=== PATIENT | male | born 1985 ===

== ENCOUNTER 2017-04-17 13:45 | Emergency (ER) | payer MEDICARE ==
[2017-04-17 14:20] VITALS: BP 106/64
--- NOTE | 2017-04-17 14:51 | Emergency Department Report ---
HPI - General Chief Complaint: Medical Clearance Time Seen by Provider: 04/17/17 14:33 - HPI HPI: 32-year-old male presents with a requesting refill for Klonopin 1 mg 3 times a day. Patient states that he was supposed to have his appointment with psychologist earlier today which will be scheduled until next Saturday. Patient is requesting a 60 refill. Patient is currently seeing Dr. Jacques for anxiety. Denies suicidal or homicidal ideations. Denies hallucinations or delusions. Patient reports that his pulse rate is usually elevated when he feels anxious and he is anxious at this moment. ED Past Medical Hx - Past Medical History Previous Medical History?: Yes Hx Psychiatric Treatment: Yes (anxiety) - Surgical History Past Surgical History?: Yes Hx Cholecystectomy: Yes Additional Surgical History: gallbladder removed - Social History Smoking Status: Current Every Day Smoker Substance Use Type: None - Medications Home Medications: Home Medications Medication Instructions Recorded Confirmed Last Taken Type clonazePAM [KlonoPIN] 1 mg PO TID #15 tablet 08/07/14 05/13/15 Unknown Rx ED Review of Systems ROS: Stated complaint: ANXIETY ATTACKS Other details as noted in HPI Constitutional: denies: chills, fever, malaise Eyes: denies: eye pain ENT: denies: ear pain, throat pain, congestion Respiratory: denies: cough, shortness of breath, wheezing Cardiovascular: denies: chest pain, palpitations Endocrine: no symptoms reported Gastrointestinal: denies: abdominal pain, nausea, vomiting Skin: denies: rash Neurological: denies: headache, weakness Psychiatric: anxiety Physical Exam - Physical Exam Vital Signs: Vital Signs 04/17/17 14:11 Temperature 98.4 F Pulse Rate 119 H Respiratory 18 Rate Blood Pressure 106/64 O2 Sat by Pulse 96 Oximetry Physical Exam: GENERAL: The patient is well-developed and well-nourished. Patient is in NAD. HEAD: Normocephalic. Atraumatic. NECK: Supple, nontender, without lymphadenopathy. No meningitic signs are noted. CHEST/LUNGS: Clear to auscultation throughout. HEART/CARDIOVASCULAR: Tachycardic. Regular rhythm. No murmurs, rubs or gallops. ABDOMEN: Abdomen is soft, nontender. Bowel sounds normoactive. No guarding or rebound tenderness. EXTREMITIES: No cyanosis, clubbing or edema. Peripheral pulses intact. Capillary refill less than 2 seconds. NEURO: Alert and oriented x 3. Normal gait. ED Course Vital Signs 04/17/17 14:11 Temperature 98.4 F Pulse Rate 119 H Respiratory 18 Rate Blood Pressure 106/64 O2 Sat by Pulse 96 Oximetry ED Medical Decision Making - Lab Data Vital Signs 04/17/17 14:11 Temperature 98.4 F Pulse Rate 119 H Respiratory 18 Rate Blood Pressure 106/64 O2 Sat by Pulse 96 Oximetry - Medical Decision Making 32-year-old male presents today requesting a refill for Klonopin. Explained to patient that according to the prescription drug monitoring program his last PRESCRIPTION was on March 26 for 1 month supply of Klonopin 1 mg, and therefore I am unable to prescribe him any medication. At that point patient decided to leave the ER without further treatment or evaluation. Critical care attestation.: If time is entered above; I have spent that time in minutes in the direct care of this critically ill patient, excluding procedure time. ED Disposition Clinical Impression: Anxiety Disposition: Z-07 ELOPED Is pt being admited?: No Does the pt Need Aspirin: No Condition: Stable Referrals: PRIMARY CARE, [Primary Care Provider] - 3-5 Days
== END 2017-04-17 14:50 | disposition left against medical advice (07) ==
LOC: ED 13:45
DX: F41.9 Anxiety disorder, unspecified (principal); F17.200 Nicotine dependence, unspecified, uncomplicated; Z88.8 Allergy status to other drugs, medicaments and biological substances
CPT/HCPCS: 99281

== ENCOUNTER 2020-03-03 08:05 | Inpatient (IN) | payer MEDICARE ==
[2020-03-03 10:03] LABS: BUN/Creatinine Ratio 20; Blood Urea Nitrogen 24 mg/dL (9-20); Calcium 9.5 mg/dL (8.4-10.2); Hemolysis Index 3
--- NOTE | 2020-03-03 10:16 | Emergency Department Report ---
HPI - General Chief Complaint: Weakness Time Seen by Provider: 03/03/20 10:00 - HPI HPI: This is a 35-year-old male who presents to the emergency department via EMS after a passerby found the patient laying on the ground outside and called 911. Patient says that he was walking from one friend's house to another earlier this morning when he felt off balance and held onto a fence. The patient says that he held onto this fence for about 4 hours and now is "exhausted." He complains of some pain to the right upper arm and right thigh but no obvious trauma. He denies any headache, vision change, fever, slurred speech but does complain of feeling dehydrated. He has a past medical history of anxiety attacks for which he takes Klonopin. He denies any alcohol or illicit drug abuse. ED Past Medical Hx - Past Medical History Previous Medical History?: Yes Hx Psychiatric Treatment: Yes (anxiety) - Surgical History Past Surgical History?: Yes Hx Cholecystectomy: Yes Additional Surgical History: gallbladder removed - Social History Smoking Status: Never Smoker Substance Use Type: None - Medications Home Medications: Home Medications Medication Instructions Recorded Confirmed Last Taken Type clonazePAM [KlonoPIN] 1 mg PO TID #15 tablet 08/07/14 05/13/15 Unknown Rx ED Review of Systems ROS: Stated complaint: POSS ETOH Other details as noted in HPI Comment: All other systems reviewed and negative Constitutional: weakness. denies: chills, fever Eyes: denies: eye pain, vision change ENT: denies: ear pain, throat pain Respiratory: denies: cough, shortness of breath Cardiovascular: denies: chest pain, palpitations Gastrointestinal: denies: abdominal pain, vomiting Genitourinary: denies: dysuria, discharge Musculoskeletal: arthralgia, myalgia. denies: back pain Skin: denies: rash, lesions Neurological: weakness. denies: headache, numbness, paresthesias Physical Exam - Physical Exam Vital Signs: Vital Signs 03/03/20 08:27 Temperature 97.5 F L Pulse Rate 100 H Respiratory 16 Rate Blood Pressure 114/68 O2 Sat by Pulse 93 Oximetry Physical Exam: GENERAL: The patient is well-developed well-nourished. HENT: Normocephalic. Atraumatic. Patient has dry mucous membranes. EYES: Extraocular motions are intact. No nystagmus. NECK: Supple. Trachea is midline. CHEST/LUNGS: Clear to auscultation. There is no respiratory distress noted. HEART/CARDIOVASCULAR: Regular. There is no tachycardia. ABDOMEN: Abdomen is soft, nontender. Patient has normal bowel sounds. There is no abdominal distention. SKIN: Skin is warm and dry. NEURO: The patient is awake, alert, and oriented. The patient is cooperative. The patient has no focal neurologic deficits. Normal speech. Cranial nerves II through XII grossly intact. Patient speaks very slowly and very quietly. MUSCULOSKELETAL: There is tenderness to palpation along the right upper arm and right thigh without any obvious deformities. There is no limitation range of motion. ED Course Vital Signs 03/03/20 08:27 Temperature 97.5 F L Pulse Rate 100 H Respiratory 16 Rate Blood Pressure 114/68 O2 Sat by Pulse 93 Oximetry ED Medical Decision Making - Lab Data Result diagrams: 03/03/20 09:34 03/03/20 09:34 - EKG Data -: EKG Interpreted by Me EKG shows normal: sinus rhythm, axis, intervals, QRS complexes, ST-T waves Rate: normal - EKG Data When compared to previous EKG there are: previous EKG unavailable Interpretation: normal EKG - Radiology Data Radiology results: report reviewed, image reviewed interpreted by me: X-ray of the right femur and humerus does not show any fracture, dislocation, signs of osteomyelitis, or any other acute process. CT head/brain wo con INDICATION: Weakness. TECHNIQUE: Routine CT head without contrast. All CT scans at this location are performed using CT dose reduction for ALARA by means of automated exposure control. COMPARISON: None. FINDINGS: BRAIN / INTRACRANIAL CONTENTS: No acute hemorrhage, mass effect, midline shift, or hydrocephalus. No appreciable acute large territorial or lacunar infarct. No chronic infarct or focal atrophy. Normal brain volume and ventricular/sulcal size for age. ORBITS: No significant abnormality of visualized orbits. SINUSES / MASTOIDS: No significant abnormality of visualized sinuses and mastoid air cells. ADDITIONAL FINDINGS: None. IMPRESSION: 1. No acute intracranial abnormality. - Medical Decision Making This patient presented to the emergency department after he was found down on the ground, although awake and oriented, while holding onto or next to a fence. The patient calls that he felt lightheaded and weak and was clinging to a fence. On examination the patient does not have any focal, motor or sensory deficits and his cranial nerves are intact. The patient speaks very softly and slowly and does appear dehydrated. An IV was placed and he was given some IV fluid resuscitation. EKG does not have any morphology consistent with ST elevation NH. CT of the head without contrast does not show any bleed, shift, mass, ischemia, or any other acute process. The patient has been complaining of pain to the right arm and leg so x-rays were done that did not show any fractures, dislocations, or any acute processes. Patient's labs shows a CK level of almost 21,000 concerning for rhabdomyolysis. Further IV fluid resuscitation has been started and the patient will be admitted to the hospital for further evaluation and treatment. He was accepted for admission by the hospitalist service. Critical Care Time: No Critical care attestation.: If time is entered above; I have spent that time in minutes in the direct care of this critically ill patient, excluding procedure time. ED Disposition Clinical Impression: Weakness, Dehydration Rhabdomyolysis Qualifiers: Rhabdomyolysis type: non-traumatic Qualified Code(s): M62.82 - Rhabdomyolysis Disposition: -09 OP ADMIT IP TO THIS HOSP Is pt being admited?: Yes Condition: Fair Time of Disposition: 11:39
[2020-03-03] MEDS ORDERED: SODIUM CHLORIDE 0.9% 1000 ML 1,000 ML IV ONE ×3 (10:17→17:11)
[2020-03-03 10:30] LABS: Hematocrit 40.5 % (35.5-45.6); Hemoglobin 13.7 gm/dl (11.8-15.2); Mean Corpuscular HGB Conc 34 % (32-34); Mean Corpuscular Volume 90 fl (84-94); Platelet Count 410 K/mm3 (140-440); Red Blood Count 4.52 M/mm3 (3.65-5.03); Red Cell Distribution Width 13.8 % (13.2-15.2)
--- NOTE | 2020-03-03 10:54 | Cat Scan Report ---
CT head/brain wo con INDICATION: Weakness. TECHNIQUE: Routine CT head without contrast. All CT scans at this location are performed using CT dos e reduction for ALARA by means of automated exposure control. COMPARISON: None. FINDINGS: BRAIN / INTRACRANIAL CONTENTS: No acute hemorrhage, mass effect, midline shift, or hydrocephalus. No appreciable acute large territorial or lacunar infarct. No chronic infarct or focal atrophy. Normal b rain volume and ventricular/sulcal size for age. ORBITS: No significant abnormality of visualized orbits. SINUSES / MASTOIDS: No significant abnormality of visualized sinuses and mastoid air cells. ADDITIONAL FINDINGS: None. IMPRESSION: 1. No acute intracranial abnormality. Signer Name: Taco Aggarwal MD Signed: 03/03/2020 10:50 AM Workstation Name: [id number]
[2020-03-03 11:10] LABS: Basophils % (Manual) 0 % (0.0-1.8); Eosinophils % (Manual) 0 % (0.0-4.3); Total Cells Counted 100
[2020-03-03 11:11] LABS: Platelet Estimate Consistent w Auto; RBC Morphology Normal
--- NOTE | 2020-03-03 11:39 | XRay Report ---
RIGHT HUMERUS 3 VIEWS INDICATION: pain, weakness. COMPARISON: No relevant prior imaging study available. FINDINGS: No acute fracture or dislocation is seen. Supracondylar process is seen at the distal humeral diaphysis. No soft tissue swelling or foreign bodies. IMPRESSION: 1. No acute findings. RIGHT FEMUR AP AND LATERAL VIEWS INDICATION: pain, weakness. COMPARISON: No relevant prior imaging study available. FINDINGS: No acute skeletal abnormality. No intrinsic osseous lesions. IMPRESSION: 1. No acute findings. Signer Name: Nas Davis MD Signed: 03/03/2020 11:35 AM Workstation Name: [email or web address]
[2020-03-03] MEDS ORDERED: SODIUM CHLORIDE 0.9% 1000 ML 1,000 ML ONE (12:55)
--- NOTE | 2020-03-03 17:08 | History and Physical Report ---
History of Present Illness Date of examination: 03/03/20 Date of admission: 03/03/20 11:38 Chief complaint: Generalized weakness/fatigue for the last 3 days History of present illness: 35-year-old male patient with significant past medical history of anxiety disorder on Klonopin presented to the emergency room via EMS after a passerby found the patient laying on the ground outside and called 911. Patient says that he was walking from one friend's house to another earlier this morning when he felt off balance and held onto a fence. The patient says that he held onto this fence for about 4 hours and now is "exhausted." He complains of some pain and generalized weakness especially in the extremities , no history of trauma. He denies any neurological symptoms like headache, dizziness, blurring vision, slurred speech but does complain of feeling dehydrated. He has a past medical history of anxiety attacks for which he takes Klonopin. He denies any alcohol or illicit drug abuse. Initial work-up is consistent with severe rhabdomyolysis, preserved renal function X-rays right femur and humerus no acute abnormalities Past History Past Medical History: other (Anxiety) Past Surgical History: cholecystectomy Social history: denies: smoking, alcohol abuse, IV drug use Family history: no significant family history Medications and Allergies Allergies Allergy/AdvReac Type Severity Reaction Status Date / Time chlorpromazine HCl AdvReac Swelling Verified 08/07/14 13:54 [From Thorazine] haloperidol [From Haldol] AdvReac Hives Verified 08/07/14 13:54 haloperidol lactate AdvReac Hives Verified 08/07/14 13:54 [From Haldol] paroxetine HCl [From Paxil] AdvReac Unknown Verified 08/07/14 13:54 quetiapine fumarate AdvReac Unknown Verified 08/07/14 13:54 [From Seroquel] ziprasidone HCl [From Geodon] AdvReac Unknown Verified 08/07/14 13:54 ziprasidone mesylate AdvReac Unknown Verified 08/07/14 13:54 [From Geodon] Home Medications Medication Instructions Recorded Confirmed Last Taken Type clonazePAM [KlonoPIN] 1 mg PO TID #15 tablet 08/07/14 05/13/15 Unknown Rx Review of Systems Constitutional: fatigue, weakness, no weight loss Ears, nose, mouth and throat: no nasal congestion, no nasal discharge Cardiovascular: no chest pain, no orthopnea, no palpitations Respiratory: no cough with sputum, no hemoptysis Gastrointestinal: nausea, vomiting, no abdominal pain Genitourinary Male: no dysuria, no hematuria Musculoskeletal: muscle weakness, muscle cramps, limitation of motion, frequent falls Integumentary: no rash, no lesions Neurological: weakness, no paralysis, no parathesias, no numbness, no seizures, no syncope Psychiatric: anxiety, no depression Endocrine: no cold intolerance, no heat intolerance Hematologic/Lymphatic: no easy bruising, no easy bleeding Allergic/Immunologic: no urticaria, no allergic rhinitis Exam - Constitutional Vitals: Temp Pulse Resp BP Pulse Ox 97.5 F L 87 12 118/73 97 03/03/20 08:27 03/03/20 11:19 03/03/20 11:19 03/03/20 11:19 03/03/20 11:19 General appearance: Present: mild distress, obese, disheveled - EENT Eyes: Present: PERRL, EOM intact - Neck Neck: Present: supple, normal ROM - Respiratory Respiratory effort: normal Respiratory: bilateral: diminished, negative: rales, rhonchi, wheezing - Cardiovascular Rhythm: regular Heart Sounds: Present: S1 & S2 - Extremities Extremities: no ischemia, No edema - Abdominal General gastrointestinal: Present: soft, non-tender, non-distended, normal bowel sounds - Integumentary Integumentary: Present: clear, warm - Musculoskeletal Musculoskeletal: strength equal bilaterally, generalized weakness - Psychiatric Psychiatric: appropriate mood/affect, cooperative - Neurologic Neurologic: moves all extremities HEART Score - HEART Score Troponin: Troponin T 0.020 ng/mL (0.00-0.029) 03/03/20 10:22 Results - Labs CBC & Chem 7: 03/03/20 09:34 03/04/20 04:33 Labs: Abnormal lab results 03/03/20 03/03/20 03/03/20 Range/Units 09:34 09:34 10:22 WBC 22.1 H (4.5-11.0) K/mm3 Seg Neuts % (Manual) 87.0 H (40.0-70.0) % Lymphocytes % (Manual) 8.0 L (13.4-35.0) % Seg Neutrophils # Man 19.2 H (1.8-7.7) K/mm3 Monocytes # (Manual) 0.9 H (0.0-0.8) K/mm3 BUN 24 H (9-20) mg/dL Total Creatine Kinase 63182 H (55-170) units/L Assessment and Plan --Severe rhabdomyolysis; Vigorous IV hydration, input output monitoring Increase oral fluids, monitor renal function --Myalgia; Supportive care, pain medications --History of anxiety; resume Klonopin Psych evaluation if needed --Obesity; BMI 35.4 Dietary modification exercise as tolerated and weight reduction when medically stable --Ongoing tobacco use; Smoking cessation counseling,nicotine patch as needed --History of chronic alcohol use; monitor for alcohol withdrawal symptoms CIWA protocol if needed --General debility/recurrent falls; PT OT evaluation and treatment Possible home with home health upon discharge --DVT prophylaxis; Lovenox Closely monitor patient and adjust management as needed Plan of care reviewed with the patient and his nurse
[2020-03-03] MEDS ORDERED: ACETAMINOPHEN 325 MG TAB PO PRN (17:29)
[2020-03-03] MEDS ORDERED: ZOLPIDEM 5 MG TAB PO PRN (17:30)
[2020-03-03] MEDS ORDERED: LORazepam 2 MG/ML VIAL IV PRN (18:36)
[2020-03-03] MEDS ORDERED: NON-FORMULARY EACH (Clonazepam [Klonopin] 1 MG) PO SCH (20:00)
[2020-03-03] MEDS: clonazePAM 0.5 MG TAB PO SCH (22:00)
[2020-03-04] MEDS: SODIUM CHLORIDE 0.9% 1000 ML 1,000 ML IV SCH ×2 (00:14→06:30)
[2020-03-04 07:11] LABS: Blood Urea Nitrogen 14 mg/dL (9-20); Calcium 8.5 mg/dL (8.4-10.2); Hemolysis Index 3
[2020-03-04 07:19] LABS: BUN/Creatinine Ratio 20
[2020-03-04 07:47] LABS: Bilirubin,Urine NEG (Negative); Blood,Urine LG (Negative); Color,Urine Yellow (Yellow); Mucus,Urine FEW /HPF; Protein,Urine <15 mg/dL mg/dL (Negative); Urobilinogen,Urine < 2.0 mg/dL (<2.0)
[2020-03-04] MEDS ORDERED: SODIUM CHLORIDE 0.9% 1000 ML 1,000 ML with SODIUM BICARBONATE 50 MEQ IV SCH (08:00)
[2020-03-04 08:01] LABS: Cannabinoid Screen,Urine Negative; Cocaine Screen,Urine Negative; Methadone Screen,Urine Negative; Opiate Screen,Urine Negative
[2020-03-04 08:15] LABS: Amphetamine Screen,Urine Positive; Benzodiazepines Screen,Urine Positive
[2020-03-04] MEDS: clonazePAM 0.5 MG TAB PO SCH ×3 (08:44→22:07)
[2020-03-04] MEDS: POTASSIUM CHLORIDE ER 20 MEQ TAB PO SCH (09:10)
[2020-03-04] MEDS: FUROSEMIDE 20 MG/2 ML INJ IV SCH (09:11)
[2020-03-04] MEDS ORDERED: PANTOPRAZOLE 40 MG INJ IV SCH (10:00)
[2020-03-04 10:25] LABS: Hematocrit 38.9 % (35.5-45.6); Hemoglobin 13.2 gm/dl (11.8-15.2); Mean Corpuscular HGB Conc 34 % (32-34); Mean Corpuscular Volume 90 fl (84-94); Platelet Count 371 K/mm3 (140-440); Red Blood Count 4.35 M/mm3 (3.65-5.03); Red Cell Distribution Width 13.4 % (13.2-15.2)
--- NOTE | 2020-03-04 17:44 | Progress Note ---
Assessment and Plan - Patient Problems (1) Rhabdomyolysis Current Visit: Yes Status: Acute Qualifiers: Rhabdomyolysis type: non-traumatic Qualified Code(s): M62.82 - Rhabdomyolysis Plan to address problem: -Admit CK was 20,825 which trended up to 22,162 and now is 18,166 - IV hydration with sodium bicarb - s/p 3L NS bolus - Trend creatinine - Supportive care (2) Acute kidney injury Current Visit: Yes Status: Acute Plan to address problem: -Admit creatinine 1.2 -Trend BMP - s/p 3 L NS bolus - Maintenance IV fluid with sodium bicarb (3) Leukocytosis Current Visit: Yes Status: Acute Plan to address problem: -Admit WBC 22.1 -03/03 urine analysis (-) -03/04 T-max 99.4 -03/04 blood cultures x2 obtained -Trend CBC (4) Hypokalemia Current Visit: Yes Status: Acute Plan to address problem: - Potassium 3.1 - Repleted with p.o. KCl - Replete as necessary - Trend BMP (5) Weakness Current Visit: Yes Status: Acute Plan to address problem: -PT/OT consulted -On admission patient states he was walking to his friend's house and was holding onto a fence for about 2 hours because of exhaustion, he was found by passerby laying on the ground (6) Anxiety Current Visit: Yes Status: Acute Plan to address problem: - Restarted home Klonopin - Supportive care (7) Drug abuse Current Visit: Yes Status: Acute Plan to address problem: -03/04 UDS positive for benzodiazepines and amphetamines -Patient denies drug use -Drug abuse counseling provided -[facility] protocol initiated (8) DVT prophylaxis Current Visit: Yes Status: Acute Plan to address problem: -SCDs to bilateral lower extremities while in bed -Heparin subcu History Interval history: 35-year-old male patient with anxiety disorder on Klonopin presented to the emergency room via EMS after a passerby found the patient laying on the ground outside and called 911 on 03/03. Patient says that he was walking from one friend's house to another earlier this morning when he felt off balance and held onto a fence for about 4 hours and now is "exhausted." He complains of some pain and generalized weakness especially in the extremities with no history of trauma and X-rays right femur and humerus show no acute abnormalities. Initial work-up is consistent with severe rhabdomyolysis and acute kidney injury secondary to vasomotor nephropathy. His UDS is positive for benzodiazepine and amphetamines. This morning he is hypokalemic at 3.1, his leukocytosis has decreased to 17.9 (22.1), creatinine has decreased to 0.7 (1.2) and his CK is trending down. PT/OT is at bedside at the time of my exam. Patient does not maintain eye contact. Hospitalist Physical - Constitutional Vitals: Temp Pulse Resp BP Pulse Ox 99.1 F 106 H 12 122/73 97 03/04/20 08:51 03/04/20 08:51 03/04/20 09:31 03/04/20 08:51 03/04/20 08:51 General appearance: Present: no acute distress, obese, disheveled - EENT Eyes: Present: PERRL ENT: hearing intact, poor dentition - Neck Neck: Present: normal ROM - Respiratory Respiratory effort: normal Respiratory: bilateral: CTA - Cardiovascular Rhythm: regular Heart Sounds: Present: S1 & S2. Absent: systolic murmur, diastolic murmur - Extremities Extremities: no ischemia, pulses intact, pulses symmetrical, No edema, normal temperature, normal color, Full ROM Peripheral Pulses: within normal limits - Abdominal General gastrointestinal: soft, non-tender, non-distended, normal bowel sounds - Integumentary Integumentary: Present: warm, dry - Psychiatric Psychiatric: cooperative, other (Limited eye contact and seems uninterested in participating with physical therapy) - Neurologic Neurologic: CNII-XII intact, no focal deficits, moves all extremities - Allied Health Allied health notes reviewed: nursing, case management HEART Score - HEART Score Troponin: Troponin T 0.020 ng/mL (0.00-0.029) 03/03/20 10:22 Results - Labs CBC & Chem 7: 03/04/20 10:17 03/04/20 04:33 Labs: Laboratory Last Values WBC 17.9 K/mm3 (4.5-11.0) H 03/04/20 10:17 RBC 4.35 M/mm3 (3.65-5.03) 03/04/20 10:17 Hgb 13.2 gm/dl (11.8-15.2) 03/04/20 10:17 Hct 38.9 % (35.5-45.6) 03/04/20 10:17 MCV 90 fl (84-94) 03/04/20 10:17 MCH 30 pg (28-32) 03/04/20 10:17 MCHC 34 % (32-34) 03/04/20 10:17 RDW 13.4 % (13.2-15.2) 03/04/20 10:17 Plt Count 371 K/mm3 (140-440) 03/04/20 10:17 Add Manual Diff Complete 03/03/20 09:34 Total Counted 100 03/03/20 09:34 Seg Neuts % (Manual) 87.0 % (40.0-70.0) H 03/03/20 09:34 Band Neutrophils % 0 % 03/03/20 09:34 Lymphocytes % (Manual) 8.0 % (13.4-35.0) L 03/03/20 09:34 Reactive Lymphs % (Man) 0 % 03/03/20 09:34 Monocytes % (Manual) 4.0 % (0.0-7.3) 03/03/20 09:34 Eosinophils % (Manual) 0 % (0.0-4.3) 03/03/20 09:34 Basophils % (Manual) 0 % (0.0-1.8) 03/03/20 09:34 Metamyelocytes % 1.0 % 03/03/20 09:34 Myelocytes % 0 % 03/03/20 09:34 Promyelocytes % 0 % 03/03/20 09:34 Blast Cells % 0 % 03/03/20 09:34 Nucleated RBC % Not Reportable 03/03/20 09:34 Seg Neutrophils # Man 19.2 K/mm3 (1.8-7.7) H 03/03/20 09:34 Band Neutrophils # 0.0 K/mm3 03/03/20 09:34 Lymphocytes # (Manual) 1.8 K/mm3 (1.2-5.4) 03/03/20 09:34 Abs React Lymphs (Man) 0.0 K/mm3 03/03/20 09:34 Monocytes # (Manual) 0.9 K/mm3 (0.0-0.8) H 03/03/20 09:34 Eosinophils # (Manual) 0.0 K/mm3 (0.0-0.4) 03/03/20 09:34 Basophils # (Manual) 0.0 K/mm3 (0.0-0.1) 03/03/20 09:34 Metamyelocytes # 0.2 K/mm3 03/03/20 09:34 Myelocytes # 0.0 K/mm3 03/03/20 09:34 Promyelocytes # 0.0 K/mm3 03/03/20 09:34 Blast Cells # 0.0 K/mm3 03/03/20 09:34 WBC Morphology Not Reportable 03/03/20 09:34 Hypersegmented Neuts Not Reportable 03/03/20 09:34 Hyposegmented Neuts Not Reportable 03/03/20 09:34 Hypogranular Neuts Not Reportable 03/03/20 09:34 Smudge Cells Not Reportable 03/03/20 09:34 Toxic Granulation Not Reportable 03/03/20 09:34 Toxic Vacuolation Not Reportable 03/03/20 09:34 Dohle Bodies Not Reportable 03/03/20 09:34 Pelger-Huet Anomaly Not Reportable 03/03/20 09:34 Tor Rods Not Reportable 03/03/20 09:34 Platelet Estimate Consistent w auto 03/03/20 09:34 Clumped Platelets Not Reportable 03/03/20 09:34 Plt Clumps, EDTA Not Reportable 03/03/20 09:34 Large Platelets Not Reportable 03/03/20 09:34 Giant Platelets Not Reportable 03/03/20 09:34 Platelet Satelliting Not Reportable 03/03/20 09:34 Plt Morphology Comment Not Reportable 03/03/20 09:34 RBC Morphology Normal 03/03/20 09:34 Dimorphic RBCs Not Reportable 03/03/20 09:34 Polychromasia Not Reportable 03/03/20 09:34 Hypochromasia Not Reportable 03/03/20 09:34 Poikilocytosis Not Reportable 03/03/20 09:34 Anisocytosis Not Reportable 03/03/20 09:34 Microcytosis Not Reportable 03/03/20 09:34 Macrocytosis Not Reportable 03/03/20 09:34 Spherocytes Not Reportable 03/03/20 09:34 Pappenheimer Bodies Not Reportable 03/03/20 09:34 Sickle Cells Not Reportable 03/03/20 09:34 Target Cells Not Reportable 03/03/20 09:34 Tear Drop Cells Not Reportable 03/03/20 09:34 Ovalocytes Not Reportable 03/03/20 09:34 Helmet Cells Not Reportable 03/03/20 09:34 Bellamy-[place] Bodies Not Reportable 03/03/20 09:34 [place] Rings Not Reportable 03/03/20 09:34 [place] Cells Not Reportable 03/03/20 09:34 Bite Cells Not Reportable 03/03/20 09:34 Crenated Cell Not Reportable 03/03/20 09:34 Elliptocytes Not Reportable 03/03/20 09:34 Acanthocytes (Spur) Not Reportable 03/03/20 09:34 Rouleaux Not Reportable 03/03/20 09:34 Hemoglobin C Crystals Not Reportable 03/03/20 09:34 Schistocytes Not Reportable 03/03/20 09:34 Malaria parasites Not Reportable 03/03/20 09:34 Adam Bodies Not Reportable 03/03/20 09:34 Hem Pathologist Commnt No 03/03/20 09:34 Sodium 142 mmol/L (137-145) 03/04/20 04:33 Potassium 3.1 mmol/L (3.6-5.0) L 03/04/20 04:33 Chloride 101.6 mmol/L (98-107) 03/04/20 04:33 Carbon Dioxide 23 mmol/L (22-30) 03/04/20 04:33 Anion Gap 21 mmol/L 03/04/20 04:33 BUN 14 mg/dL (9-20) 03/04/20 04:33 Creatinine 0.7 mg/dL (0.8-1.3) L 03/04/20 04:33 Estimated GFR > 60 ml/min 03/04/20 04:33 BUN/Creatinine Ratio 20 % 03/04/20 04:33 Glucose 81 mg/dL (75-100) 03/04/20 04:33 POC Glucose 98 (70-105) 03/03/20 08:35 Calcium 8.5 mg/dL (8.4-10.2) 03/04/20 04:33 Ammonia 37.0 umol/L (25-60) 03/03/20 10:22 Total Creatine Kinase 08350 units/L (55-170) H 03/04/20 04:33 Troponin T 0.020 ng/mL (0.00-0.029) 03/03/20 10:22 Urine Color Yellow (Yellow) 03/04/20 06:39 Urine Turbidity Clear (Clear) 03/04/20 06:39 Urine pH 6.0 (5.0-7.0) 03/04/20 06:39 Ur Specific Cost 1.014 (1.003-1.030) 03/04/20 06:39 Urine Protein <15 mg/dl mg/dL (Negative) 03/04/20 06:39 Urine Glucose (UA) Neg mg/dL (Negative) 03/04/20 06:39 Urine Ketones 20 mg/dL (Negative) 03/04/20 06:39 Urine Blood Lg (Negative) 03/04/20 06:39 Urine Nitrite Neg (Negative) 03/04/20 06:39 Urine Bilirubin Neg (Negative) 03/04/20 06:39 Urine Urobilinogen < 2.0 mg/dL (<2.0) 03/04/20 06:39 Ur Leukocyte Esterase Neg (Negative) 03/04/20 06:39 Urine WBC (Auto) 3.0 /HPF (0.0-6.0) 03/04/20 06:39 Urine RBC (Auto) 3.0 /HPF (0.0-6.0) 03/04/20 06:39 Urine Mucus Few /HPF 03/04/20 06:39 Urine Opiates Screen Negative 03/04/20 06:39 Urine Methadone Screen Negative 03/04/20 06:39 Ur Barbiturates Screen Negative 03/04/20 06:39 Ur Phencyclidine Scrn Negative 03/04/20 06:39 Ur Amphetamines Screen Positive 03/04/20 06:39 U Benzodiazepines Scrn Positive 03/04/20 06:39 Urine Cocaine Screen Negative 03/04/20 06:39 U Marijuana (THC) Screen Negative 03/04/20 06:39 Drugs of Abuse Note Disclamer 03/04/20 06:39 Plasma/Serum Alcohol < 0.01 % (0-0.07) 03/03/20 10:22 Zarate/IV: Voiding Method Toilet IV Catheter Type [Left Forearm INT / Saline Lock ] IV Catheter Type [Left INT / Saline Lock Antecubital] Active Medications - Current Medications Current Medications: Generic Name Dose Route Start Last Admin Trade Name Freq PRN Reason Stop Dose Admin Acetaminophen 650 mg 03/03/20 17:29 Tylenol PO Q4H PRN Pain, Mild (1-3) Clonazepam 1 mg 03/03/20 20:00 03/04/20 14:34 Klonopin PO 1 mg TID JONELLE Administration Furosemide 20 mg 03/04/20 10:00 03/04/20 09:11 Lasix IV 20 mg QDAY JONELLE Administration Sodium Bicarbonate 50 meq/ 1,050 mls @ 150 mls/hr 03/04/20 08:00 Sodium Chloride IV DIRECT JONELLE Lorazepam 2 mg 03/03/20 18:36 Ativan IV Q4H PRN Agitation Potassium Chloride 40 meq 03/04/20 10:00 03/04/20 09:10 K-Dur PO 40 meq QDAY JONELLE Administration Zolpidem Tartrate 5 mg 03/03/20 17:30 Ambien PO QHS PRN Sleep Nutrition/Malnutrition Assess - Dietary Evaluation Nutrition/Malnutrition Findings: Nutrition Notes Start: 03/04/20 08:49 Freq: Status: Active Protocol: Document 03/04/20 08:49 RASHEED (Rec: 03/04/20 09:03 RASHEED [id number]) Co-Sign 03/04/20 08:49 LP Nutrition Notes Need for Assessment generated from: new accounts clerk Initial or Follow up Brief Note Other Pertinent Diagnosis Rhabdomyolysis, dehydration Current Diet Regular diet Labs/Tests BUN 24 Creatinine Kinase 82239 Pertinent Medications Lasix KCl Replacement Height 6 ft 3 in Weight 128.3 kg Usual Body Weight 106.4 kg [place] Body Weight (kg) 89.09 BMI 35.3 Intake Prior to Admission Good Weight Status Obese Subjective/Other Information Consult for malnutrition. Pt shows no signs of malnutrition . Pt has no difficulty eating and consuming 100% of meals. Pt reports no recent wt loss. Burn Absent Trauma Absent Food Allergy No Current % PO Good (75-100%) Minimum of two criteria No physical signs of malnutrition Is patient on ventilator? No Is Patient Ambulatory and/or Out of Bed Yes REE-(Bartholomew-St. Jeor-ambulatory/OOB) [ 2988.219 NUTR.MSJOOB] Nutrition Intervention Goal #1 Pt continue meeting at least 80% of kcal and protein needs. Anticipated Discharge Needs: Regular diet Revisit per MD consult or patient Sign Off request:
[2020-03-05 04:13] LABS: Blood Urea Nitrogen 12 mg/dL (9-20); Calcium 8.4 mg/dL (8.4-10.2); Hemolysis Index 2
[2020-03-05 04:24] LABS: BUN/Creatinine Ratio 17
[2020-03-05] MEDS: FUROSEMIDE 20 MG/2 ML INJ IV SCH (10:15)
[2020-03-05] MEDS: POTASSIUM CHLORIDE ER 20 MEQ TAB PO SCH (10:15)
[2020-03-05] MEDS: clonazePAM 0.5 MG TAB PO SCH ×3 (10:15→21:35)
--- NOTE | 2020-03-05 11:33 | Progress Note ---
Assessment and Plan Assessment and plan: -- Rhabdomyolysis Current Visit: Yes Status: Acute Plan to address problem: -Admit CK was 20,825 which trended up to 22,162 and now is 18,166 - IV hydration with sodium bicarb - s/p 3L NS bolus - Trend creatinine - Supportive care -- Leukocytosis Current Visit: Yes Status: Acute Plan to address problem: -Admit WBC 22.1 -03/03 urine analysis (-) -03/04 T-max 99.4 -03/04 blood cultures x2 obtained -Trend CBC -- Hypokalemia Current Visit: Yes Status: Acute Plan to address problem: - Potassium 3.1 - Repleted with p.o. KCl - Replete as necessary - Trend BMP -- Weakness Current Visit: Yes Status: Acute Plan to address problem: -PT/OT consulted -On admission patient states he was walking to his friend's house and was holding onto a fence for about 2 hours because of exhaustion, he was found by passerby laying on the ground --Anxiety Current Visit: Yes Status: Acute Plan to address problem: - Restarted home Klonopin - Supportive care --Drug abuse Current Visit: Yes Status: Acute Plan to address problem: -03/04 UDS positive for benzodiazepines and amphetamines -Patient denies drug use -Drug abuse counseling provided -[facility] protocol initiated -- DVT prophylaxis Current Visit: Yes Status: Acute Plan to address problem: -SCDs to bilateral lower extremities while in bed -Heparin subcu 03/05; CK level significantly improved, still elevated in 1000s Continue rigorous IV hydration, preserved renal function, supportive care Case management per discharge planning[patient is homeless] History Interval history: Have seen and examined the patient Patient's chart and medications reviewed CK level slightly improved Complains of generalized weakness Vital signs noted Hospitalist Physical - Constitutional Vitals: Temp Pulse Resp BP Pulse Ox 98.0 F 89 20 119/71 93 03/05/20 07:37 03/05/20 09:09 03/05/20 07:37 03/05/20 07:37 03/05/20 07:37 General appearance: Present: no acute distress, obese, disheveled - EENT Eyes: Present: PERRL, EOM intact - Neck Neck: Present: supple, normal ROM - Respiratory Respiratory effort: normal Respiratory: bilateral: diminished, negative: rales, rhonchi, wheezing - Cardiovascular Rhythm: regular Heart Sounds: Present: S1 & S2 - Extremities Extremities: no ischemia, No edema - Abdominal General gastrointestinal: soft, non-tender, non-distended, normal bowel sounds - Integumentary Integumentary: Present: clear, warm - Psychiatric Psychiatric: appropriate mood/affect, cooperative - Neurologic Neurologic: moves all extremities HEART Score - HEART Score Troponin: Troponin T 0.020 ng/mL (0.00-0.029) 03/03/20 10:22 Results - Labs CBC & Chem 7: 03/04/20 10:17 03/05/20 03:06 Labs: Laboratory Last Values WBC 17.9 K/mm3 (4.5-11.0) H 03/04/20 10:17 RBC 4.35 M/mm3 (3.65-5.03) 03/04/20 10:17 Hgb 13.2 gm/dl (11.8-15.2) 03/04/20 10:17 Hct 38.9 % (35.5-45.6) 03/04/20 10:17 MCV 90 fl (84-94) 03/04/20 10:17 MCH 30 pg (28-32) 03/04/20 10:17 MCHC 34 % (32-34) 03/04/20 10:17 RDW 13.4 % (13.2-15.2) 03/04/20 10:17 Plt Count 371 K/mm3 (140-440) 03/04/20 10:17 Add Manual Diff Complete 03/03/20 09:34 Total Counted 100 03/03/20 09:34 Seg Neuts % (Manual) 87.0 % (40.0-70.0) H 03/03/20 09:34 Band Neutrophils % 0 % 03/03/20 09:34 Lymphocytes % (Manual) 8.0 % (13.4-35.0) L 03/03/20 09:34 Reactive Lymphs % (Man) 0 % 03/03/20 09:34 Monocytes % (Manual) 4.0 % (0.0-7.3) 03/03/20 09:34 Eosinophils % (Manual) 0 % (0.0-4.3) 03/03/20 09:34 Basophils % (Manual) 0 % (0.0-1.8) 03/03/20 09:34 Metamyelocytes % 1.0 % 03/03/20 09:34 Myelocytes % 0 % 03/03/20 09:34 Promyelocytes % 0 % 03/03/20 09:34 Blast Cells % 0 % 03/03/20 09:34 Nucleated RBC % Not Reportable 03/03/20 09:34 Seg Neutrophils # Man 19.2 K/mm3 (1.8-7.7) H 03/03/20 09:34 Band Neutrophils # 0.0 K/mm3 03/03/20 09:34 Lymphocytes # (Manual) 1.8 K/mm3 (1.2-5.4) 03/03/20 09:34 Abs React Lymphs (Man) 0.0 K/mm3 03/03/20 09:34 Monocytes # (Manual) 0.9 K/mm3 (0.0-0.8) H 03/03/20 09:34 Eosinophils # (Manual) 0.0 K/mm3 (0.0-0.4) 03/03/20 09:34 Basophils # (Manual) 0.0 K/mm3 (0.0-0.1) 03/03/20 09:34 Metamyelocytes # 0.2 K/mm3 03/03/20 09:34 Myelocytes # 0.0 K/mm3 03/03/20 09:34 Promyelocytes # 0.0 K/mm3 03/03/20 09:34 Blast Cells # 0.0 K/mm3 03/03/20 09:34 WBC Morphology Not Reportable 03/03/20 09:34 Hypersegmented Neuts Not Reportable 03/03/20 09:34 Hyposegmented Neuts Not Reportable 03/03/20 09:34 Hypogranular Neuts Not Reportable 03/03/20 09:34 Smudge Cells Not Reportable 03/03/20 09:34 Toxic Granulation Not Reportable 03/03/20 09:34 Toxic Vacuolation Not Reportable 03/03/20 09:34 Dohle Bodies Not Reportable 03/03/20 09:34 Pelger-Huet Anomaly Not Reportable 03/03/20 09:34 Tor Rods Not Reportable 03/03/20 09:34 Platelet Estimate Consistent w auto 03/03/20 09:34 Clumped Platelets Not Reportable 03/03/20 09:34 Plt Clumps, EDTA Not Reportable 03/03/20 09:34 Large Platelets Not Reportable 03/03/20 09:34 Giant Platelets Not Reportable 03/03/20 09:34 Platelet Satelliting Not Reportable 03/03/20 09:34 Plt Morphology Comment Not Reportable 03/03/20 09:34 RBC Morphology Normal 03/03/20 09:34 Dimorphic RBCs Not Reportable 03/03/20 09:34 Polychromasia Not Reportable 03/03/20 09:34 Hypochromasia Not Reportable 03/03/20 09:34 Poikilocytosis Not Reportable 03/03/20 09:34 Anisocytosis Not Reportable 03/03/20 09:34 Microcytosis Not Reportable 03/03/20 09:34 Macrocytosis Not Reportable 03/03/20 09:34 Spherocytes Not Reportable 03/03/20 09:34 Pappenheimer Bodies Not Reportable 03/03/20 09:34 Sickle Cells Not Reportable 03/03/20 09:34 Target Cells Not Reportable 03/03/20 09:34 Tear Drop Cells Not Reportable 03/03/20 09:34 Ovalocytes Not Reportable 03/03/20 09:34 Helmet Cells Not Reportable 03/03/20 09:34 Bellamy-[place] Bodies Not Reportable 03/03/20 09:34 [place] Rings Not Reportable 03/03/20 09:34 [place] Cells Not Reportable 03/03/20 09:34 Bite Cells Not Reportable 03/03/20 09:34 Crenated Cell Not Reportable 03/03/20 09:34 Elliptocytes Not Reportable 03/03/20 09:34 Acanthocytes (Spur) Not Reportable 03/03/20 09:34 Rouleaux Not Reportable 03/03/20 09:34 Hemoglobin C Crystals Not Reportable 03/03/20 09:34 Schistocytes Not Reportable 03/03/20 09:34 Malaria parasites Not Reportable 03/03/20 09:34 Adam Bodies Not Reportable 03/03/20 09:34 Hem Pathologist Commnt No 03/03/20 09:34 Sodium 141 mmol/L (137-145) 03/05/20 03:06 Potassium 3.4 mmol/L (3.6-5.0) L 08/29/20 03:06 Chloride 100.2 mmol/L (98-107) 03/05/20 03:06 Carbon Dioxide 29 mmol/L (22-30) 03/05/20 03:06 Anion Gap 15 mmol/L 03/05/20 03:06 BUN 12 mg/dL (9-20) 03/05/20 03:06 Creatinine 0.7 mg/dL (0.8-1.3) L 03/05/20 03:06 Estimated GFR > 60 ml/min 03/05/20 03:06 BUN/Creatinine Ratio 17 % 03/05/20 03:06 Glucose 101 mg/dL (75-100) H 03/05/20 03:06 POC Glucose 98 (70-105) 03/03/20 08:35 Calcium 8.4 mg/dL (8.4-10.2) 03/05/20 03:06 Ammonia 37.0 umol/L (25-60) 03/03/20 10:22 Total Creatine Kinase 8155 units/L (55-170) H 03/05/20 03:06 Troponin T 0.020 ng/mL (0.00-0.029) 03/03/20 10:22 Urine Color Yellow (Yellow) 03/04/20 06:39 Urine Turbidity Clear (Clear) 03/04/20 06:39 Urine pH 6.0 (5.0-7.0) 03/04/20 06:39 Ur Specific [place] 1.014 (1.003-1.030) 03/04/20 06:39 Urine Protein <15 mg/dl mg/dL (Negative) 03/04/20 06:39 Urine Glucose (UA) Neg mg/dL (Negative) 03/04/20 06:39 Urine Ketones 20 mg/dL (Negative) 03/04/20 06:39 Urine Blood Lg (Negative) 03/04/20 06:39 Urine Nitrite Neg (Negative) 03/04/20 06:39 Urine Bilirubin Neg (Negative) 03/04/20 06:39 Urine Urobilinogen < 2.0 mg/dL (<2.0) 03/04/20 06:39 Ur Leukocyte Esterase Neg (Negative) 03/04/20 06:39 Urine WBC (Auto) 3.0 /HPF (0.0-6.0) 03/04/20 06:39 Urine RBC (Auto) 3.0 /HPF (0.0-6.0) 03/04/20 06:39 Urine Mucus Few /HPF 03/04/20 06:39 Urine Opiates Screen Negative 03/04/20 06:39 Urine Methadone Screen Negative 03/04/20 06:39 Ur Barbiturates Screen Negative 03/04/20 06:39 Ur Phencyclidine Scrn Negative 03/04/20 06:39 Ur Amphetamines Screen Positive 03/04/20 06:39 U Benzodiazepines Scrn Positive 03/04/20 06:39 Urine Cocaine Screen Negative 03/04/20 06:39 U Marijuana (THC) Screen Negative 03/04/20 06:39 Drugs of Abuse Note Disclamer 03/04/20 06:39 Plasma/Serum Alcohol < 0.01 % (0-0.07) 03/03/20 10:22 Microbiology: Microbiology 03/04/20 19:57 Peripheral/Venous Blood Culture - Preliminary Culture in Progress 03/04/20 19:57 Peripheral/Venous Blood Culture - Preliminary Culture in Progress Zarate/IV: Voiding Method Bedside Commode IV Catheter Type [Left Forearm Peripheral IV ] IV Catheter Type [Left INT / Saline Lock Antecubital] Active Medications - Current Medications Current Medications: Generic Name Dose Route Start Last Admin Trade Name Freq PRN Reason Stop Dose Admin Acetaminophen 650 mg 03/03/20 17:29 Tylenol PO Q4H PRN Pain, Mild (1-3) Clonazepam 1 mg 03/03/20 20:00 03/05/20 10:15 Klonopin PO 1 mg TID JONELLE Administration Furosemide 20 mg 03/04/20 10:00 03/05/20 10:15 Lasix IV 20 mg QDAY JONELLE Administration Sodium Bicarbonate 50 meq/ 1,050 mls @ 150 mls/hr 03/04/20 08:00 Sodium Chloride IV DIRECT JONELLE Lorazepam 2 mg 03/03/20 18:36 Ativan IV Q4H PRN Agitation Potassium Chloride 40 meq 03/04/20 10:00 03/05/20 10:15 K-Dur PO 40 meq QDAY JONELLE Administration Potassium Chloride 20 meq 03/05/20 11:31 K-Dur PO 03/05/20 11:32 ONCE ONE Zolpidem Tartrate 5 mg 03/03/20 17:30 Ambien PO QHS PRN Sleep Nutrition/Malnutrition Assess - Dietary Evaluation Nutrition/Malnutrition Findings: Nutrition Notes Start: 03/04/20 08 :49 Freq: Status: Active Protocol: Document 03/04/20 08:49 RASHEED (Rec: 03/04/20 09:03 RASHEED [id number]) Co-Sign 03/04/20 08:49 LP Nutrition Notes Need for Assessment generated from: blue leather setter Initial or Follow up Brief Note Other Pertinent Diagnosis Rhabdomyolysis, dehydration Current Diet Regular diet Labs/Tests BUN 24 Creatinine Kinase 96854 Pertinent Medications Lasix KCl Replacement Height 6 ft 3 in Weight 128.3 kg Usual Body Weight 106.4 kg [place] Body Weight (kg) 89.09 BMI 35.3 Intake Prior to Admission Good Weight Status Obese Subjective/Other Information Consult for malnutrition. Pt shows no signs of malnutrition . Pt has no difficulty eating and consuming 100% of meals. Pt reports no recent wt loss. Burn Absent Trauma Absent Food Allergy No Current % PO Good (75-100%) Minimum of two criteria No physical signs of malnutrition Is patient on ventilator? No Is Patient Ambulatory and/or Out of Bed Yes REE-([place]. or-ambulatory/OOB) [ 2988.219 NUTR.[id number]] Nutrition Intervention Goal #1 Pt continue meeting at least 80% of kcal and protein needs. Anticipated Discharge Needs: Regular diet Revisit per MD consult or patient Sign Off request:
[2020-03-05] MEDS ORDERED: POTASSIUM CHLORIDE ER 20 MEQ TAB PO ONE (12:00)
[2020-03-06 07:16] LABS: Blood Urea Nitrogen 11 mg/dL (9-20); Calcium 8.7 mg/dL (8.4-10.2); Hemolysis Index 4
[2020-03-06 07:20] LABS: BUN/Creatinine Ratio 16
[2020-03-06] MEDS: clonazePAM 0.5 MG TAB PO SCH ×3 (08:19→22:03)
[2020-03-06] MEDS: POTASSIUM CHLORIDE ER 20 MEQ TAB PO SCH (10:06)
[2020-03-06] MEDS: FUROSEMIDE 20 MG/2 ML INJ IV SCH (10:09)
--- NOTE | 2020-03-06 20:16 | Progress Note ---
Assessment and Plan Assessment and plan: -- Rhabdomyolysis Current Visit: Yes Status: Acute Plan to address problem: CK improving 20,825 - 22,162 - [id number] IV hydration with sodium bicarb -- Leukocytosis Current Visit: Yes Status: Acute Plan to address problem: WBC 22.1-17 K trending down Blood cultures negative to date -- Hypokalemia Current Visit: Yes Status: Acute Plan to address problem: Replace with KCl per protocol -- Weakness Current Visit: Yes Status: Acute Plan to address problem: -PT/OT consulted --Anxiety Current Visit: Yes Status: Acute Plan to address problem: Continue Klonopin --Drug abuse Current Visit: Yes Status: Acute Plan to address problem: 03/04 UDS positive for benzodiazepines and amphetamines Advised to quit alcohol and recreational drug use -- DVT prophylaxis Current Visit: Yes Status: Acute Plan to address problem: SCDs, heparin Monitor closely and adjust management as needed Possible discharge in 1 to 2 days if stable 03/05; CK level significantly improved, still elevated in 1000s Continue rigorous IV hydration, preserved renal function, supportive care Case management per discharge planning[patient is homeless] 03/06; CK levels today 4000, preserved renal function, follow PT OT History Interval history: I have seen and examined the patient Patient feels better no new complaints Vital signs noted Hospitalist Physical - Constitutional Vitals: Temp Pulse Resp BP Pulse Ox 97.9 F 83 20 127/72 97 03/06/20 15:52 03/06/20 15:52 03/06/20 15:52 03/06/20 15:52 03/06/20 15:52 General appearance: Present: no acute distress, obese, disheveled - EENT Eyes: Present: PERRL, EOM intact - Neck Neck: Present: supple, normal ROM - Respiratory Respiratory effort: normal Respiratory: bilateral: diminished, negative: rales, rhonchi, wheezing - Cardiovascular Rhythm: regular Heart Sounds: Present: S1 & S2 - Extremities Extremities: no ischemia, No edema - Abdominal General gastrointestinal: soft, non-tender, non-distended, normal bowel sounds - Integumentary Integumentary: Present: clear, warm - Psychiatric Psychiatric: appropriate mood/affect, cooperative - Neurologic Neurologic: moves all extremities HEART Score - HEART Score Troponin: Troponin T 0.020 ng/mL (0.00-0.029) 03/03/20 10:22 Results - Labs CBC & Chem 7: 03/04/20 10:17 03/06/20 05:13 Labs: Laboratory Last Values WBC 17.9 K/mm3 (4.5-11.0) H 03/04/20 10:17 RBC 4.35 M/mm3 (3.65-5.03) 03/04/20 10:17 Hgb 13.2 gm/dl (11.8-15.2) 03/04/20 10:17 Hct 38.9 % (35.5-45.6) 03/04/20 10:17 MCV 90 fl (84-94) 03/04/20 10:17 MCH 30 pg (28-32) 03/04/20 10:17 MCHC 34 % (32-34) 03/04/20 10:17 RDW 13.4 % (13.2-15.2) 03/04/20 10:17 Plt Count 371 K/mm3 (140-440) 03/04/20 10:17 Add Manual Diff Complete 03/03/20 09:34 Total Counted 100 03/03/20 09:34 Seg Neuts % (Manual) 87.0 % (40.0-70.0) H 03/03/20 09:34 Band Neutrophils % 0 % 03/03/20 09:34 Lymphocytes % (Manual) 8.0 % (13.4-35.0) L 03/03/20 09:34 Reactive Lymphs % (Man) 0 % 03/03/20 09:34 Monocytes % (Manual) 4.0 % (0.0-7.3) 03/03/20 09:34 Eosinophils % (Manual) 0 % (0.0-4.3) 03/03/20 09:34 Basophils % (Manual) 0 % (0.0-1.8) 03/03/20 09:34 Metamyelocytes % 1.0 % 03/03/20 09:34 Myelocytes % 0 % 03/03/20 09:34 Promyelocytes % 0 % 03/03/20 09:34 Blast Cells % 0 % 03/03/20 09:34 Nucleated RBC % Not Reportable 03/03/20 09:34 Seg Neutrophils # Man 19.2 K/mm3 (1.8-7.7) H 03/03/20 09:34 Band Neutrophils # 0.0 K/mm3 03/03/20 09:34 Lymphocytes # (Manual) 1.8 K/mm3 (1.2-5.4) 03/03/20 09:34 Abs React Lymphs (Man) 0.0 K/mm3 03/03/20 09:34 Monocytes # (Manual) 0.9 K/mm3 (0.0-0.8) H 03/03/20 09:34 Eosinophils # (Manual) 0.0 K/mm3 (0.0-0.4) 03/03/20 09:34 Basophils # (Manual) 0.0 K/mm3 (0.0-0.1) 03/03/20 09:34 Metamyelocytes # 0.2 K/mm3 03/03/20 09:34 Myelocytes # 0.0 K/mm3 03/03/20 09:34 Promyelocytes # 0.0 K/mm3 03/03/20 09:34 Blast Cells # 0.0 K/mm3 03/03/20 09:34 WBC Morphology Not Reportable 03/03/20 09:34 Hypersegmented Neuts Not Reportable 03/03/20 09:34 Hyposegmented Neuts Not Reportable 03/03/20 09:34 Hypogranular Neuts Not Reportable 03/03/20 09:34 Smudge Cells Not Reportable 03/03/20 09:34 Toxic Granulation Not Reportable 03/03/20 09:34 Toxic Vacuolation Not Reportable 03/03/20 09:34 Dohle Bodies Not Reportable 03/03/20 09:34 Pelger-Huet Anomaly Not Reportable 03/03/20 09:34 Tor Rods Not Reportable 03/03/20 09:34 Platelet Estimate Consistent w auto 03/03/20 09:34 Clumped Platelets Not Reportable 03/03/20 09:34 Plt Clumps, EDTA Not Reportable 03/03/20 09:34 Large Platelets Not Reportable 03/03/20 09:34 Giant Platelets Not Reportable 03/03/20 09:34 Platelet Satelliting Not Reportable 03/03/20 09:34 Plt Morphology Comment Not Reportable 03/03/20 09:34 RBC Morphology Normal 03/03/20 09:34 Dimorphic RBCs Not Reportable 03/03/20 09:34 Polychromasia Not Reportable 03/03/20 09:34 Hypochromasia Not Reportable 03/03/20 09:34 Poikilocytosis Not Reportable 03/03/20 09:34 Anisocytosis Not Reportable 03/03/20 09:34 Microcytosis Not Reportable 03/03/20 09:34 Macrocytosis Not Reportable 03/03/20 09:34 Spherocytes Not Reportable 03/03/20 09:34 Pappenheimer Bodies Not Reportable 03/03/20 09:34 Sickle Cells Not Reportable 03/03/20 09:34 Target Cells Not Reportable 03/03/20 09:34 Tear Drop Cells Not Reportable 03/03/20 09:34 Ovalocytes Not Reportable 03/03/20 09:34 Helmet Cells Not Reportable 03/03/20 09:34 Bellamy-Shabbon[place] Bodies Not Reportable 03/03/20 09:34 [place] Rings Not Reportable 03/03/20 09:34 Naomy Cells Not Reportable 03/03/20 09:34 Bite Cells Not Reportable 03/03/20 09:34 Crenated Cell Not Reportable 03/03/20 09:34 Elliptocytes Not Reportable 03/03/20 09:34 Acanthocytes (Spur) Not Reportable 03/03/20 09:34 Rouleaux Not Reportable 03/03/20 09:34 Hemoglobin C Crystals Not Reportable 03/03/20 09:34 Schistocytes Not Reportable 03/03/20 09:34 Malaria parasites Not Reportable 03/03/20 09:34 Adam Bodies Not Reportable 03/03/20 09:34 Hem Pathologist Commnt No 03/03/20 09:34 Sodium 143 mmol/L (137-145) 03/06/20 05:13 Potassium 3.7 mmol/L (3.6-5.0) 03/06/20 05:13 Chloride 100.6 mmol/L (98-107) 03/06/20 05:13 Carbon Dioxide 29 mmol/L (22-30) 03/06/20 05:13 Anion Gap 17 mmol/L 03/06/20 05:13 BUN 11 mg/dL (9-20) 03/06/20 05:13 Creatinine 0.7 mg/dL (0.8-1.3) L 03/06/20 05:13 Estimated GFR > 60 ml/min 03/06/20 05:13 BUN/Creatinine Ratio 16 % 03/06/20 05:13 Glucose 87 mg/dL (75-100) 03/06/20 05:13 POC Glucose 98 (70-105) 03/03/20 08:35 Calcium 8.7 mg/dL (8.4-10.2) 03/06/20 05:13 Ammonia 37.0 umol/L (25-60) 03/03/20 10:22 Total Creatine Kinase 4106 units/L (55-170) H 03/06/20 05:13 Troponin T 0.020 ng/mL (0.00-0.029) 03/03/20 10:22 Urine Color Yellow (Yellow) 03/04/20 06:39 Urine Turbidity Clear (Clear) 03/04/20 06:39 Urine pH 6.0 (5.0-7.0) 03/04/20 06:39 Ur Specific [place] 1.014 (1.003-1.030) 03/04/20 06:39 Urine Protein <15 mg/dl mg/dL (Negative) 03/04/20 06:39 Urine Glucose (UA) Neg mg/dL (Negative) 03/04/20 06:39 Urine Ketones 20 mg/dL (Negative) 03/04/20 06:39 Urine Blood Lg (Negative) 03/04/20 06:39 Urine Nitrite Neg (Negative) 03/04/20 06:39 Urine Bilirubin Neg (Negative) 03/04/20 06:39 Urine Urobilinogen < 2.0 mg/dL (<2.0) 03/04/20 06:39 Ur Leukocyte Esterase Neg (Negative) 03/04/20 06:39 Urine WBC (Auto) 3.0 /HPF (0.0-6.0) 03/04/20 06:39 Urine RBC (Auto) 3.0 /HPF (0.0-6.0) 03/04/20 06:39 Urine Mucus Few /HPF 03/04/20 06:39 Urine Opiates Screen Negative 03/04/20 06:39 Urine Methadone Screen Negative 03/04/20 06:39 Ur Barbiturates Screen Negative 03/04/20 06:39 Ur Phencyclidine Scrn Negative 03/04/20 06:39 Ur Amphetamines Screen Positive 03/04/20 06:39 U Benzodiazepines Scrn Positive 03/04/20 06:39 Urine Cocaine Screen Negative 03/04/20 06:39 U Marijuana (THC) Screen Negative 03/04/20 06:39 Drugs of Abuse Note Disclamer 03/04/20 06:39 Plasma/Serum Alcohol < 0.01 % (0-0.07) 03/03/20 10:22 Microbiology: Microbiology 03/04/20 19:57 Peripheral/Venous Blood Culture - Preliminary NO GROWTH AFTER 24 HOURS 03/04/20 19:57 Peripheral/Venous Blood Culture - Preliminary NO GROWTH AFTER 24 HOURS Zarate/IV: Voiding Method Toilet IV Catheter Type [Left Forearm Peripheral IV ] IV Catheter Type [Left INT / Saline Lock Antecubital] Active Medications - Current Medications Current Medications: Generic Name Dose Route Start Last Admin Trade Name Freq PRN Reason Stop Dose Admin Acetaminophen 650 mg 03/03/20 17:29 Tylenol PO Q4H PRN Pain, Mild (1-3) Clonazepam 1 mg 03/03/20 20:00 03/06/20 15:03 Klonopin PO 1 mg TID JONELLE Administration Furosemide 20 mg 03/04/20 10:00 03/06/20 10:09 Lasix IV 20 mg QDAY JONELLE Administration Sodium Bicarbonate 50 meq/ 1,050 mls @ 150 mls/hr 03/04/20 08:00 Sodium Chloride IV DIRECT JONELLE Lorazepam 2 mg 03/03/20 18:36 Ativan IV Q4H PRN Agitation Potassium Chloride 40 meq 03/04/20 10:00 03/06/20 10:06 K-Dur PO 40 meq QDAY JONELLE Administration Zolpidem Tartrate 5 mg 03/03/20 17:30 Ambien PO QHS PRN Sleep Nutrition/Malnutrition Assess - Dietary Evaluation Nutrition/Malnutrition Findings: Nutrition Notes Start: 03/04/20 08:49 Freq: Status: Active Protocol: Document 03/04/20 08:49 RASHEED (Rec: 03/04/20 09:03 RASHEED [id number]) Co-Sign 03/04/20 08:49 LP Nutrition Notes Need for Assessment generated from: account financial manager Initial or Follow up Brief Note Other Pertinent Diagnosis Rhabdomyolysis, dehydration Current Diet Regular diet Labs/Tests BUN 24 Creatinine Kinase 36630 Pertinent Medications Lasix KCl Replacement Height 6 ft 3 in Weight 128.3 kg Usual Body Weight 106.4 kg [place] Body Weight (kg) 89.09 BMI 35.3 Intake Prior to Admission Good Weight Status Obese Subjective/Other Information Consult for malnutrition. Pt shows no signs of malnutrition . Pt has no difficulty eating and consuming 100% of meals. Pt reports no recent wt loss. Burn Absent Trauma Absent Food Allergy No Current % PO Good (75-100%) Minimum of two criteria No physical signs of malnutrition Is patient on ventilator? No Is Patient Ambulatory and/or Out of Bed Yes REE-([facility]-ambulatory/OOB) [ 2988.219 [id number]] Nutrition Intervention Goal #1 Pt continue meeting at least 80% of kcal and protein needs. Anticipated Discharge Needs: Regular diet Revisit per MD consult or patient Sign Off request:
[2020-03-06] MEDS: SODIUM BICARBONATE 50 MEQ in SODIUM CHLORIDE 0.9% 1000 ML 1,000 ML IV SCH (22:04)
[2020-03-07] MEDS: SODIUM BICARBONATE 50 MEQ in SODIUM CHLORIDE 0.9% 1000 ML 1,000 ML IV SCH (07:25)
[2020-03-07 07:34] LABS: Basophils % (Auto) 0.3 % (0.0-1.8); Eosinophils # (Auto) 0.3 K/mm3 (0.0-0.4); Eosinophils % (Auto) 2.8 % (0.0-4.3); Hematocrit 37.7 % (35.5-45.6); Hemoglobin 12.8 gm/dl (11.8-15.2); Lymphocytes # (Auto) 2.2 K/mm3 (1.2-5.4); Lymphocytes % (Auto) 18.9 % (13.4-35.0); Mean Corpuscular HGB Conc 34 % (32-34); Mean Corpuscular Volume 91 fl (84-94); Monocytes # (Auto) 1.1 K/mm3 (0.0-0.8); Monocytes % (Auto) 9.8 % (0.0-7.3); Platelet Count 436 K/mm3 (140-440); Red Blood Count 4.16 M/mm3 (3.65-5.03); Red Cell Distribution Width 13.6 % (13.2-15.2)
[2020-03-07 08:05] LABS: Blood Urea Nitrogen 14 mg/dL (9-20); Calcium 9.2 mg/dL (8.4-10.2); Hemolysis Index 5
--- NOTE | 2020-03-07 08:08 | Event Note ---
Date: 03/07/20 I called [phone] and spoke with patient's father Mr. Rad Sams and his mother Mrs. Sams Patient's condition, test reports, treatment plan and answered all their questions They reported that patient has schizophrenia and anxiety disorder and is addicted to Klonopin I assured them that I would consult psychiatrist for further evaluation and management of his schizophrenia and anxiety disorder And encouraged him to call back with questions or concerns
[2020-03-07 08:18] LABS: BUN/Creatinine Ratio 20
[2020-03-07] MEDS: clonazePAM 0.5 MG TAB PO SCH ×3 (08:40→21:52)
[2020-03-07] MEDS: POTASSIUM CHLORIDE ER 20 MEQ TAB PO SCH (09:04)
[2020-03-07] MEDS: FUROSEMIDE 20 MG/2 ML INJ IV SCH (09:04)
--- NOTE | 2020-03-07 15:24 | Consultation ---
History of Present Illness - Reason for Consult Consult date: 03/07/20 Reason for consult: hx of schizophrenia - History of Present Psychiatric Illness The patient's medical record was reviewed and the patient's progress was discussed with the nursing staff. The nurse caring for the patient states he's very disorganized. He says the patient's parents states he's been addicted to benzos and the patient has been delusional. Pritesh Sams is a 35y/o male patient who presented to the ER after he was found lying on the ground, according to medical record. I attempted to interview the patient today. He is sitting on side of the bed. He is oriented x 2. He appears drowsy. He is disheveled. He is disorganized. He is speaking in a very low tone. It is inaudible at times. He is difficult to follow. The patient can't give any insight into what's going on with him or any history. PAST PSYCHIATRIC HISTORY: Could not obtain PAST MEDICAL HISTORY: None reported Family Psychiatric History: None reported or documented SOCIAL HISTORY Could not obtain REVIEW OF SYSTEMS Could not assess MSE unable to adequately assess Diagnoses: Schizophrenia Substance Use Disorder Substance Induced Mood Disorder Treatment Plan Start Risperidone 0.25mg po BID Continue Klonopin 1mg po TID Sitter: Defer to primary Medical: Per primary Disposition: Recommend acute inpatient psychiatric treatment Will follow. Thank you for this consult. Medications and Allergies Allergies Allergy/AdvReac Type Severity Reaction Status Date / Time chlorpromazine HCl AdvReac Swelling Verified 08/07/14 13:54 [From Thorazine] haloperidol [From Haldol] AdvReac Hives Verified 08/07/14 13:54 haloperidol lactate AdvReac Hives Verified 08/07/14 13:54 [From Haldol] paroxetine HCl [From Paxil] AdvReac Unknown Verified 08/07/14 13:54 quetiapine fumarate AdvReac Unknown Verified 08/07/14 13:54 [From Seroquel] ziprasidone HCl [From Geodon] AdvReac Unknown Verified 08/07/14 13:54 ziprasidone mesylate AdvReac Unknown Verified 08/07/14 13:54 [From Geodon] Home Medications Medication Instructions Recorded Confirmed Last Taken Type clonazePAM [KlonoPIN] 1 mg PO TID #15 tablet 08/07/14 03/05/20 Unknown Rx Active Meds: Active Medications Acetaminophen (Tylenol) 650 mg PO Q4H PRN PRN Reason: Pain, Mild (1-3) Clonazepam (Klonopin) 1 mg PO TID [facility] Last Admin: 03/07/20 13:24 Dose: 1 mg Documented by: Furosemide (Lasix) 20 mg IV QDAY [facility] Last Admin: 03/07/20 09:04 Dose: 20 mg Documented by: Sodium Bicarbonate 50 meq/ (Sodium Chloride) 1,050 mls @ 150 mls/hr IV DIRECT [facility] Last Admin: 03/07/20 07:25 Dose: 150 mls/hr Documented by: Lorazepam (Ativan) 2 mg IV Q4H PRN PRN Reason: Agitation Potassium Chloride (K-Dur) 40 meq PO QDAY [facility] Last Admin: 03/07/20 09:04 Dose: 40 meq Documented by: Zolpidem Tartrate (Ambien) 5 mg PO QHS PRN PRN Reason: Sleep Mental Status Exam - Vital signs Last Vital Signs Temp 98.1 F 03/07/20 11:23 Pulse 86 03/07/20 11:23 Resp 18 03/07/20 11:23 BP 113/72 03/07/20 11:23 Pulse Ox 96 03/07/20 11:23 Results Result Diagrams: 03/07/20 07:03 03/07/20 07:03 Abnormal lab results 03/07/20 03/07/20 Range/Units 07:03 07:03 WBC 11.6 H (4.5-11.0) K/mm3 [place] % (Auto) 9.8 H (0.0-7.3) % [place] # 1.1 H (0.0-0.8) K/mm3 Seg Neutrophils # 7.9 H (1.8-7.7) K/mm3 Carbon Dioxide 31 H (22-30) mmol/L Creatinine 0.7 L (0.8-1.3) mg/dL Total Creatine Kinase 2956 H (55-170) units/L All other labs normal.
[2020-03-07] MEDS: risperiDONE 0.25 MG TAB PO SCH ×2 (17:40→21:52)
--- NOTE | 2020-03-07 20:34 | Progress Note ---
Assessment and Plan Assessment and plan: -- Rhabdomyolysis Current Visit: Yes Status: Acute Plan to address problem: CK improving 20,825 - 22,162 - [id number] IV hydration ,d/c sodium bicarb [co2 - 31] -- Leukocytosis Current Visit: Yes Status: Acute Plan to address problem: WBC 22.1-17 K trending down Blood cultures negative to date -- Hypokalemia Current Visit: Yes Status: Acute Plan to address problem: Replace with KCl per protocol -- Weakness Current Visit: Yes Status: Acute Plan to address problem: -PT/OT consulted --Anxiety Current Visit: Yes Status: Acute Plan to address problem: Continue Klonopin --History of schizophrenia; [history given by patient's mother and father] psych consult --Drug abuse Current Visit: Yes Status: Acute Plan to address problem: 03/04 UDS positive for benzodiazepines and amphetamines Advised to quit alcohol and recreational drug use -- DVT prophylaxis Current Visit: Yes Status: Acute Plan to address problem: SCDs, heparin Monitor closely and adjust management as needed Possible discharge in 1 to 2 days if stable 03/05; CK level significantly improved, still elevated in 1000s Continue rigorous IV hydration, preserved renal function, supportive care Case management per discharge planning[patient is homeless] 03/06; CK levels today 4000, preserved renal function, follow PT OT 03/07; discussed with patient's mother and father, give history of Klonopin addiction Drug abuse and schizophrenia, consulted psych History Interval history: Patient feels slightly better CK levels trending down No new complaints Vital signs stable Hospitalist Physical - Constitutional Vitals: Temp Pulse Resp BP Pulse Ox 98.4 F 90 16 108/71 95 03/07/20 19:13 03/07/20 19:13 03/07/20 19:13 03/07/20 19:13 03/07/20 19:13 General appearance: Present: no acute distress, well-nourished - EENT Eyes: Present: PERRL, EOM intact - Neck Neck: Present: supple, normal ROM - Respiratory Respiratory effort: normal Respiratory: bilateral: diminished, negative: rales, rhonchi, wheezing - Cardiovascular Rhythm: regular Heart Sounds: Present: S1 & S2 - Extremities Extremities: no ischemia, No edema - Abdominal General gastrointestinal: soft, non-tender, non-distended, normal bowel sounds - Integumentary Integumentary: Present: clear, warm - Psychiatric Psychiatric: appropriate mood/affect - Neurologic Neurologic: CNII-XII intact, moves all extremities HEART Score - HEART Score Troponin: Troponin T 0.020 ng/mL (0.00-0.029) 03/03/20 10:22 Results - Labs CBC & Chem 7: 03/07/20 07:03 03/08/20 13:57 Labs: Laboratory Last Values WBC 11.6 K/mm3 (4.5-11.0) H 03/07/20 07:03 RBC 4.16 M/mm3 (3.65-5.03) 03/07/20 07:03 Hgb 12.8 gm/dl (11.8-15.2) 03/07/20 07:03 Hct 37.7 % (35.5-45.6) 03/07/20 07:03 MCV 91 fl (84-94) 03/07/20 07:03 MCH 31 pg (28-32) 03/07/20 07:03 MCHC 34 % (32-34) 03/07/20 07:03 RDW 13.6 % (13.2-15.2) 03/07/20 07:03 Plt Count 436 K/mm3 (140-440) 03/07/20 07:03 Lymph % (Auto) 18.9 % (13.4-35.0) 03/07/20 07:03 [place] % (Auto) 9.8 % (0.0-7.3) H 03/07/20 07:03 Eos % (Auto) 2.8 % (0.0-4.3) 03/07/20 07:03 Baso % (Auto) 0.3 % (0.0-1.8) 03/07/20 07:03 Lymph # 2.2 K/mm3 (1.2-5.4) 03/07/20 07:03 [place] # 1.1 K/mm3 (0.0-0.8) H 03/07/20 07:03 Eos # 0.3 K/mm3 (0.0-0.4) 03/07/20 07:03 Baso # 0.0 K/mm3 (0.0-0.1) 03/07/20 07:03 Add Manual Diff Complete 03/03/20 09:34 Total Counted 100 03/03/20 09:34 Seg Neutrophils % 68.2 % (40.0-70.0) 03/07/20 07:03 Seg Neuts % (Manual) 87.0 % (40.0-70.0) H 03/03/20 09:34 Band Neutrophils % 0 % 03/03/20 09:34 Lymphocytes % (Manual) 8.0 % (13.4-35.0) L 03/03/20 09:34 Reactive Lymphs % (Man) 0 % 03/03/20 09:34 Monocytes % (Manual) 4.0 % (0.0-7.3) 03/03/20 09:34 Eosinophils % (Manual) 0 % (0.0-4.3) 03/03/20 09:34 Basophils % (Manual) 0 % (0.0-1.8) 03/03/20 09:34 Metamyelocytes % 1.0 % 03/03/20 09:34 Myelocytes % 0 % 03/03/20 09:34 Promyelocytes % 0 % 03/03/20 09:34 Blast Cells % 0 % 03/03/20 09:34 Nucleated RBC % Not Reportable 03/03/20 09:34 Seg Neutrophils # 7.9 K/mm3 (1.8-7.7) H 03/07/20 07:03 Seg Neutrophils # Man 19.2 K/mm3 (1.8-7.7) H 03/03/20 09:34 Band Neutrophils # 0.0 K/mm3 03/03/20 09:34 Lymphocytes # (Manual) 1.8 K/mm3 (1.2-5.4) 03/03/20 09:34 Abs React Lymphs (Man) 0.0 K/mm3 03/03/20 09:34 Monocytes # (Manual) 0.9 K/mm3 (0.0-0.8) H 03/03/20 09:34 Eosinophils # (Manual) 0.0 K/mm3 (0.0-0.4) 03/03/20 09:34 Basophils # (Manual) 0.0 K/mm3 (0.0-0.1) 03/03/20 09:34 Metamyelocytes # 0.2 K/mm3 03/03/20 09:34 Myelocytes # 0.0 K/mm3 03/03/20 09:34 Promyelocytes # 0.0 K/mm3 03/03/20 09:34 Blast Cells # 0.0 K/mm3 03/03/20 09:34 WBC Morphology Not Reportable 03/03/20 09:34 Hypersegmented Neuts Not Reportable 03/03/20 09:34 Hyposegmented Neuts Not Reportable 03/03/20 09:34 Hypogranular Neuts Not Reportable 03/03/20 09:34 Smudge Cells Not Reportable 03/03/20 09:34 Toxic Granulation Not Reportable 03/03/20 09:34 Toxic Vacuolation Not Reportable 03/03/20 09:34 Dohle Bodies Not Reportable 03/03/20 09:34 Pelger-Huet Anomaly Not Reportable 03/03/20 09:34 Tor Rods Not Reportable 03/03/20 09:34 Platelet Estimate Consistent w auto 03/03/20 09:34 Clumped Platelets Not Reportable 03/03/20 09:34 Plt Clumps, EDTA Not Reportable 03/03/20 09:34 Large Platelets Not Reportable 03/03/20 09:34 Giant Platelets Not Reportable 03/03/20 09:34 Platelet Satelliting Not Reportable 03/03/20 09:34 Plt Morphology Comment Not Reportable 03/03/20 09:34 RBC Morphology Normal 03/03/20 09:34 Dimorphic RBCs Not Reportable 03/03/20 09:34 Polychromasia Not Reportable 03/03/20 09:34 Hypochromasia Not Reportable 03/03/20 09:34 Poikilocytosis Not Reportable 03/03/20 09:34 Anisocytosis Not Reportable 03/03/20 09:34 Microcytosis Not Reportable 03/03/20 09:34 Macrocytosis Not Reportable 03/03/20 09:34 Spherocytes Not Reportable 03/03/20 09:34 Pappenheimer Bodies Not Reportable 03/03/20 09:34 Sickle Cells Not Reportable 03/03/20 09:34 Target Cells Not Reportable 03/03/20 09:34 Tear Drop Cells Not Reportable 03/03/20 09:34 Ovalocytes Not Reportable 03/03/20 09:34 Helmet Cells Not Reportable 03/03/20 09:34 [place]amy-[place] Bodies Not Reportable 03/03/20 09:34 [place] Rings Not Reportable 03/03/20 09:34 Naomy Cells Not Reportable 03/03/20 09:34 Bite Cells Not Reportable 03/03/20 09:34 Crenated Cell Not Reportable 03/03/20 09:34 Elliptocytes Not Reportable 03/03/20 09:34 Acanthocytes (Spur) Not Reportable 03/03/20 09:34 Rouleaux Not Reportable 03/03/20 09:34 Hemoglobin C Crystals Not Reportable 03/03/20 09:34 Schistocytes Not Reportable 03/03/20 09:34 Malaria parasites Not Reportable 03/03/20 09:34 Adam Bodies Not Reportable 03/03/20 09:34 Hem Pathologist Commnt No 03/03/20 09:34 Sodium 143 mmol/L (137-145) 03/07/20 07:03 Potassium 4.4 mmol/L (3.6-5.0) 03/07/20 07:03 Chloride 100.8 mmol/L (98-107) 03/07/20 07:03 Carbon Dioxide 31 mmol/L (22-30) H 03/07/20 07:03 Anion Gap 16 mmol/L 03/07/20 07:03 BUN 14 mg/dL (9-20) 03/07/20 07:03 Creatinine 0.7 mg/dL (0.8-1.3) L 03/07/20 07:03 Estimated GFR > 60 ml/min 03/07/20 07:03 BUN/Creatinine Ratio 20 % 03/07/20 07:03 Glucose 87 mg/dL (75-100) 03/07/20 07:03 POC Glucose 98 (70-105) 03/03/20 08:35 Calcium 9.2 mg/dL (8.4-10.2) 03/07/20 07:03 Ammonia 37.0 umol/L (25-60) 03/03/20 10:22 Total Creatine Kinase 2956 units/L (55-170) H 03/07/20 07:03 Troponin T 0.020 ng/mL (0.00-0.029) 03/03/20 10:22 Urine Color Yellow (Yellow) 03/04/20 06:39 Urine Turbidity Clear (Clear) 03/04/20 06:39 Urine pH 6.0 (5.0-7.0) 03/04/20 06:39 Ur Specific [place] 1.014 (1.003-1.030) 03/04/20 06:39 Urine Protein <15 mg/dl mg/dL (Negative) 03/04/20 06:39 Urine Glucose (UA) Neg mg/dL (Negative) 03/04/20 06:39 Urine Ketones 20 mg/dL (Negative) 03/04/20 06:39 Urine Blood Lg (Negative) 03/04/20 06:39 Urine Nitrite Neg (Negative) 03/04/20 06:39 Urine Bilirubin Neg (Negative) 03/04/20 06:39 Urine Urobilinogen < 2.0 mg/dL (<2.0) 03/04/20 06:39 Ur Leukocyte Esterase Neg (Negative) 03/04/20 06:39 Urine WBC (Auto) 3.0 /HPF (0.0-6.0) 03/04/20 06:39 Urine RBC (Auto) 3.0 /HPF (0.0-6.0) 03/04/20 06:39 Urine Mucus Few /HPF 03/04/20 06:39 Urine Opiates Screen Negative 03/04/20 06:39 Urine Methadone Screen Negative 03/04/20 06:39 Ur Barbiturates Screen Negative 03/04/20 06:39 Ur Phencyclidine Scrn Negative 03/04/20 06:39 Ur Amphetamines Screen Positive 03/04/20 06:39 U Benzodiazepines Scrn Positive 03/04/20 06:39 Urine Cocaine Screen Negative 03/04/20 06:39 U Marijuana (THC) Screen Negative 03/04/20 06:39 Drugs of Abuse Note Disclamer 03/04/20 06:39 Plasma/Serum Alcohol < 0.01 % (0-0.07) 03/03/20 10:22 Microbiology: Microbiology 03/04/20 19:57 Peripheral/Venous Blood Culture - Preliminary NO GROWTH AFTER 48 HOURS 03/04/20 19:57 Peripheral/Venous Blood Culture - Preliminary NO GROWTH AFTER 48 HOURS Zarate/IV: Voiding Method Toilet IV Catheter Type [Left Forearm Peripheral IV ] IV Catheter Type [Left INT / Saline Lock Antecubital] Active Medications - Current Medications Current Medications: Generic Name Dose Route Start Last Admin Trade Name Freq PRN Reason Stop Dose Admin Acetaminophen 650 mg 03/03/20 17:29 Tylenol PO Q4H PRN Pain, Mild (1-3) Clonazepam 1 mg 03/03/20 20:00 03/07/20 13:24 Klonopin PO 1 mg TID JONELLE Administration Furosemide 20 mg 03/04/20 10:00 03/07/20 09:04 Lasix IV 20 mg QDAY JONELLE Administration Lorazepam 2 mg 03/03/20 18:36 Ativan IV Q4H PRN Agitation Potassium Chloride 40 meq 03/04/20 10:00 03/07/20 09:04 K-Dur PO 40 meq QDAY JONELLE Administration Risperidone 0.25 mg 03/07/20 16:00 03/07/20 17:40 Risperdal PO 0.25 mg BID JONELLE Administration Zolpidem Tartrate 5 mg 03/03/20 17:30 Ambien PO QHS PRN Sleep Nutrition/Malnutrition Assess - Dietary Evaluation Nutrition/Malnutrition Findings: Nutrition Notes Start: 03/04/20 08:49 Freq: Status: Active Protocol: Document 03/04/20 08:49 RASHEED (Rec: 03/04/20 09:03 RASHEED [id number]) Co-Sign 03/04/20 08:49 LP Nutrition Notes 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 Pt shows no signs of malnutrition . Pt has no difficulty eating and consuming 100% of meals. Pt reports no recent wt loss. Burn Absent Trauma Absent Food Allergy No Current % PO Good (75-100%) Minimum of two criteria No physical signs of malnutrition Is patient on ventilator? No Is Patient Ambulatory and/or Out of Bed Yes REE-([facility]-ambulatory/OOB) [ 2988.219 [id number]] Nutrition Intervention Goal #1 Pt continue meeting at least 80% of kcal and protein needs. Anticipated Discharge Needs: Regular diet Revisit per MD consult or patient Sign Off request:
[2020-03-08] MEDS: clonazePAM 0.5 MG TAB PO SCH ×3 (08:50→21:45)
[2020-03-08] MEDS: FUROSEMIDE 20 MG/2 ML INJ IV SCH (10:52)
[2020-03-08] MEDS: POTASSIUM CHLORIDE ER 20 MEQ TAB PO SCH (10:52)
[2020-03-08] MEDS: risperiDONE 0.25 MG TAB PO SCH ×2 (10:52→21:55)
--- NOTE | 2020-03-08 12:25 | Progress Note ---
Subjective - Reason for Consult Consult date: 03/08/20 Reason for consult: hx of schizophrenia - Chief Complaint Chief complaint: During my interview with the patient today, he was lying in bed, awake. He is lucid today. His speech is clearer and he's able to communicate effectively. The patient is a/o x 3. He denies SI/HI or ever having them. Pritesh states "I feel much better." He then asks "are you letting me go home?" He says he was brought to the ER for "losing balance in my legs." He denies hallucinations of any kind. The patient also denies any fear or feelings of endangerment. The patient states, "whenever I can leave, my mom will pick me up." The patient gave me permission to speak with his mother. I called her from the patient's bedside from my personal phone at [phone]. I discussed the patient's progress and treatment plan with his mother. She states the patient takes Invega sustenna and they have a nurse who comes to the house to administer it. Mom says the patient is current on it. She says the patient is typically stable on his medications, and usually doesn't have a problem. Mom was concerned with the patient's klonopin. She says the patient left home with it and she's not sure if he still has them. She says he needs those. The patient states his medication is with security. When checked with nurse she says if items are with security there would be a slip on the chart. The patient's mother states the patient does not take the abilify that he's been prescribed. Pritesh says the abilify makes him feel off balance. Mom wants scripts given of meds given in the hospital. REVIEW OF SYSTEMS Constitutional: Negative for weight loss ENT: Negative for stridor Respiratory: Negative for cough or hemoptysis All other systems reviewed and are negative MENTAL STATUS EXAMINATION General Appearance and Behavior: wearing appropriate clothes. Calm and cooperative. Good eye contact. Cooperation: Cooperative Mood: "much better" Affect and affective range: Congruent with stated mood Thought Process: Fluent/Logical Speech: Normal tone and pace Thought Content: Suicidal Ideation: Denies Homicidal Ideation: Denies Hallucinations: Denies Delusions: None elicited Insight and Judgment: Limited insight and judgment Memory: Normal Attention: Normal Orientation: Alert, oriented Diagnoses: Schizophrenia Substance Use Disorder Treatment Plan D/c 1013 d/c taylorfy Scripts Risperidone 0.25mg po BID Decrease Klonopin 0.5mg po TID Sitter: Defer to primary Medical: Per primary Disposition: Do not recommend acute inpatient psychiatric treatment. The patient can discharge home with mother once medically clear. He is to follow up with outpatient psychiatry or primary in 7 to 14 days. The patient is to comply with medications and all other medical regimens. Will sign off. Thank you for this consult. Mental Status Exam - Vital signs Last Vital Signs Temp 98.2 F 03/08/20 03:52 Pulse 79 03/08/20 07:46 Resp 17 03/08/20 03:52 BP 110/62 03/08/20 03:52 Pulse Ox 95 03/08/20 07:46
[2020-03-08 16:41] LABS: Blood Urea Nitrogen 16 mg/dL (9-20); Calcium 9.5 mg/dL (8.4-10.2); Hemolysis Index 9
[2020-03-08 16:48] LABS: BUN/Creatinine Ratio 23
--- NOTE | 2020-03-08 17:19 | Progress Note ---
Assessment and Plan Assessment and plan: -- Rhabdomyolysis Current Visit: Yes Status: Acute Plan to address problem: CK improving 20,825 - 22,162 - [id number] Continue IV hydration, plenty of oral fluids -- Leukocytosis Current Visit: Yes Status: Acute Plan to address problem: WBC 22.1-17-11 K trending down Blood cultures negative to date -- Hypokalemia resolved Current Visit: Yes Status: Acute Plan to address problem: Replace with KCl per protocol -- Weakness/improved Current Visit: Yes Status: Acute Plan to address problem: -PT recommend home health PT --Anxiety Current Visit: Yes Status: Acute Plan to address problem: Continue Klonopin --History of schizophrenia; [history given by patient's mother and father] Current Visit: Yes Status: Acute Plan to address problem: psych evaluation noted and appreciated --Drug abuse Current Visit: Yes Status: Acute Plan to address problem: 03/04 UDS positive for benzodiazepines and amphetamines Advised to quit alcohol and recreational drug use -- DVT prophylaxis Current Visit: Yes Status: Acute Plan to address problem: SCDs, heparin Monitor closely and adjust management as needed Possible discharge home tomorrow if stable 03/05; CK level significantly improved, still elevated in 1000s Continue rigorous IV hydration, preserved renal function, supportive care Case management per discharge planning[patient is homeless] 03/06; CK levels today 4000, preserved renal function, follow PT OT 03/07; discussed with patient's mother and father, give history of Klonopin addiction Drug abuse and schizophrenia, consulted psych 03/08; patient CK levels trending down to 10 74 Patient is ambulatory tolerating oral nutrition Possible discharge home with home health home PT if stable History Interval history: I have seen and examined the patient at the bedside this morning Patient feels better no new complaints No agitation or aggression Vital signs noted Hospitalist Physical - Constitutional Vitals: Temp Pulse Resp BP Pulse Ox 98.2 F 75 18 153/43 96 03/08/20 12:00 03/08/20 12:00 03/08/20 12:00 03/08/20 12:00 03/08/20 12:00 General appearance: Present: no acute distress, well-nourished - EENT Eyes: Present: PERRL (How is you guys rhabdo), EOM intact - Neck Neck: Present: supple, normal ROM - Respiratory Respiratory effort: normal, labored - Cardiovascular Rhythm: regular Heart Sounds: Present: S1 & S2 - Extremities Extremities: no ischemia, No edema Peripheral Pulses: within normal limits - Abdominal General gastrointestinal: soft, non-tender, non-distended, normal bowel sounds - Integumentary Integumentary: Present: clear, warm - Psychiatric Psychiatric: appropriate mood/affect, cooperative - Neurologic Neurologic: CNII-XII intact, moves all extremities HEART Score - HEART Score Troponin: Troponin T 0.020 ng/mL (0.00-0.029) 03/03/20 10:22 Results - Labs CBC & Chem 7: 03/07/20 07:03 03/08/20 13:57 Labs: Laboratory Last Values WBC 11.6 K/mm3 (4.5-11.0) H 03/07/20 07:03 RBC 4.16 M/mm3 (3.65-5.03) 03/07/20 07:03 Hgb 12.8 gm/dl (11.8-15.2) 03/07/20 07:03 Hct 37.7 % (35.5-45.6) 03/07/20 07:03 MCV 91 fl (84-94) 03/07/20 07:03 MCH 31 pg (28-32) 03/07/20 07:03 MCHC 34 % (32-34) 03/07/20 07:03 RDW 13.6 % (13.2-15.2) 03/07/20 07:03 Plt Count 436 K/mm3 (140-440) 03/07/20 07:03 Lymph % (Auto) 18.9 % (13.4-35.0) 03/07/20 07:03 [place] % (Auto) 9.8 % (0.0-7.3) H 03/07/20 07:03 Eos % (Auto) 2.8 % (0.0-4.3) 03/07/20 07:03 Baso % (Auto) 0.3 % (0.0-1.8) 03/07/20 07:03 Lymph # 2.2 K/mm3 (1.2-5.4) 03/07/20 07:03 [place] # 1.1 K/mm3 (0.0-0.8) H 03/07/20 07:03 Eos # 0.3 K/mm3 (0.0-0.4) 03/07/20 07:03 Baso # 0.0 K/mm3 (0.0-0.1) 03/07/20 07:03 Add Manual Diff Complete 03/03/20 09:34 Total Counted 100 03/03/20 09:34 Seg Neutrophils % 68.2 % (40.0-70.0) 03/07/20 07:03 Seg Neuts % (Manual) 87.0 % (40.0-70.0) H 03/03/20 09:34 Band Neutrophils % 0 % 03/03/20 09:34 Lymphocytes % (Manual) 8.0 % (13.4-35.0) L 03/03/20 09:34 Reactive Lymphs % (Man) 0 % 03/03/20 09:34 Monocytes % (Manual) 4.0 % (0.0-7.3) 03/03/20 09:34 Eosinophils % (Manual) 0 % (0.0-4.3) 03/03/20 09:34 Basophils % (Manual) 0 % (0.0-1.8) 03/03/20 09:34 Metamyelocytes % 1.0 % 03/03/20 09:34 Myelocytes % 0 % 03/03/20 09:34 Promyelocytes % 0 % 03/03/20 09:34 Blast Cells % 0 % 03/03/20 09:34 Nucleated RBC % Not Reportable 03/03/20 09:34 Seg Neutrophils # 7.9 K/mm3 (1.8-7.7) H 03/07/20 07:03 Seg Neutrophils # Man 19.2 K/mm3 (1.8-7.7) H 03/03/20 09:34 Band Neutrophils # 0.0 K/mm3 03/03/20 09:34 Lymphocytes # (Manual) 1.8 K/mm3 (1.2-5.4) 03/03/20 09:34 Abs React Lymphs (Man) 0.0 K/mm3 03/03/20 09:34 Monocytes # (Manual) 0.9 K/mm3 (0.0-0.8) H 03/03/20 09:34 Eosinophils # (Manual) 0.0 K/mm3 (0.0-0.4) 03/03/20 09:34 Basophils # (Manual) 0.0 K/mm3 (0.0-0.1) 03/03/20 09:34 Metamyelocytes # 0.2 K/mm3 03/03/20 09:34 Myelocytes # 0.0 K/mm3 03/03/20 09:34 Promyelocytes # 0.0 K/mm3 03/03/20 09:34 Blast Cells # 0.0 K/mm3 03/03/20 09:34 WBC Morphology Not Reportable 03/03/20 09:34 Hypersegmented Neuts Not Reportable 03/03/20 09:34 Hyposegmented Neuts Not Reportable 03/03/20 09:34 Hypogranular Neuts Not Reportable 03/03/20 09:34 Smudge Cells Not Reportable 03/03/20 09:34 Toxic Granulation Not Reportable 03/03/20 09:34 Toxic Vacuolation Not Reportable 03/03/20 09:34 Dohle Bodies Not Reportable 03/03/20 09:34 Pelger-Huet Anomaly Not Reportable 03/03/20 09:34 Tor Rods Not Reportable 03/03/20 09:34 Platelet Estimate Consistent w auto 03/03/20 09:34 Clumped Platelets Not Reportable 03/03/20 09:34 Plt Clumps, EDTA Not Reportable 03/03/20 09:34 Large Platelets Not Reportable 03/03/20 09:34 Giant Platelets Not Reportable 03/03/20 09:34 Platelet Satelliting Not Reportable 03/03/20 09:34 Plt Morphology Comment Not Reportable 03/03/20 09:34 RBC Morphology Normal 03/03/20 09:34 Dimorphic RBCs Not Reportable 03/03/20 09:34 Polychromasia Not Reportable 03/03/20 09:34 Hypochromasia Not Reportable 03/03/20 09:34 Poikilocytosis Not Reportable 03/03/20 09:34 Anisocytosis Not Reportable 03/03/20 09:34 Microcytosis Not Reportable 03/03/20 09:34 Macrocytosis Not Reportable 03/03/20 09:34 Spherocytes Not Reportable 03/03/20 09:34 Pappenheimer Bodies Not Reportable 03/03/20 09:34 Sickle Cells Not Reportable 03/03/20 09:34 Target Cells Not Reportable 03/03/20 09:34 Tear Drop Cells Not Reportable 03/03/20 09:34 Ovalocytes Not Reportable 03/03/20 09:34 Helmet Cells Not Reportable 03/03/20 09:34 [place] Bodies Not Reportable 03/03/20 09:34 [place] Rings Not Reportable 03/03/20 09:34 Naomy Cells Not Reportable 03/03/20 09:34 Bite Cells Not Reportable 03/03/20 09:34 Crenated Cell Not Reportable 03/03/20 09:34 Elliptocytes Not Reportable 03/03/20 09:34 Acanthocytes (Spur) Not Reportable 03/03/20 09:34 Rouleaux Not Reportable 03/03/20 09:34 Hemoglobin C Crystals Not Reportable 03/03/20 09:34 Schistocytes Not Reportable 03/03/20 09:34 Malaria parasites Not Reportable 03/03/20 09:34 Adam Bodies Not Reportable 03/03/20 09:34 Hem Pathologist Commnt No 03/03/20 09:34 Sodium 139 mmol/L (137-145) 03/08/20 13:57 Potassium 4.9 mmol/L (3.6-5.0) 03/08/20 13:57 Chloride 96.5 mmol/L (98-107) L 03/08/20 13:57 Carbon Dioxide 24 mmol/L (22-30) D 03/08/20 13:57 Anion Gap 23 mmol/L 03/08/20 13:57 BUN 16 mg/dL (9-20) 03/08/20 13:57 Creatinine 0.7 mg/dL (0.8-1.3) L 03/08/20 13:57 Estimated GFR > 60 ml/min 03/08/20 13:57 BUN/Creatinine Ratio 23 % 03/08/20 13:57 Glucose 108 mg/dL (75-100) H 03/08/20 13:57 POC Glucose 98 (70-105) 03/03/20 08:35 Calcium 9.5 mg/dL (8.4-10.2) 03/08/20 13:57 Ammonia 37.0 umol/L (25-60) 03/03/20 10:22 Total Creatine Kinase 1074 units/L (55-170) H 03/08/20 13:57 Troponin T 0.020 ng/mL (0.00-0.029) 03/03/20 10:22 Urine Color Yellow (Yellow) 03/04/20 06:39 Urine Turbidity Clear (Clear) 03/04/20 06:39 Urine pH 6.0 (5.0-7.0) 03/04/20 06:39 Ur Specific [place]win 1.014 (1.003-1.030) 03/04/20 06:39 Urine Protein <15 mg/dl mg/dL (Negative) 03/04/20 06:39 Urine Glucose (UA) Neg mg/dL (Negative) 03/04/20 06:39 Urine Ketones 20 mg/dL (Negative) 03/04/20 06:39 Urine Blood Lg (Negative) 03/04/20 06:39 Urine Nitrite Neg (Negative) 03/04/20 06:39 Urine Bilirubin Neg (Negative) 03/04/20 06:39 Urine Urobilinogen < 2.0 mg/dL (<2.0) 03/04/20 06:39 Ur Leukocyte Esterase Neg (Negative) 03/04/20 06:39 Urine WBC (Auto) 3.0 /HPF (0.0-6.0) 03/04/20 06:39 Urine RBC (Auto) 3.0 /HPF (0.0-6.0) 03/04/20 06:39 Urine Mucus Few /HPF 03/04/20 06:39 Urine Opiates Screen Negative 03/04/20 06:39 Urine Methadone Screen Negative 03/04/20 06:39 Ur Barbiturates Screen Negative 03/04/20 06:39 Ur Phencyclidine Scrn Negative 03/04/20 06:39 Ur Amphetamines Screen Positive 03/04/20 06:39 U Benzodiazepines Scrn Positive 03/04/20 06:39 Urine Cocaine Screen Negative 03/04/20 06:39 U Marijuana (THC) Screen Negative 03/04/20 06:39 Drugs of Abuse Note Disclamer 03/04/20 06:39 Plasma/Serum Alcohol < 0.01 % (0-0.07) 03/03/20 10:22 Microbiology: Microbiology 03/04/20 19:57 Peripheral/Venous Blood Culture - Preliminary NO GROWTH AFTER 72 HOURS 03/04/20 19:57 Peripheral/Venous Blood Culture - Preliminary NO GROWTH AFTER 72 HOURS Zarate/IV: Voiding Method Toilet IV Catheter Type [Left Forearm Peripheral IV ] IV Catheter Type [Left INT / Saline Lock Antecubital] Active Medications - Current Medications Current Medications: Generic Name Dose Route Start Last Admin Trade Name Freq PRN Reason Stop Dose Admin Acetaminophen 650 mg 03/03/20 17:29 Tylenol PO Q4H PRN Pain, Mild (1-3) Clonazepam 1 mg 03/03/20 20:00 03/08/20 15:58 Klonopin PO 1 mg TID JONELLE Administration Furosemide 20 mg 03/04/20 10:00 03/08/20 10:52 Lasix IV 20 mg QDAY JONELLE Administration Lorazepam 2 mg 03/03/20 18:36 Ativan IV Q4H PRN Agitation Potassium Chloride 40 meq 03/04/20 10:00 03/08/20 10:52 K-Dur PO 40 meq QDAY JONELLE Administration Risperidone 0.25 mg 03/07/20 16:00 03/08/20 10:52 Risperdal PO 0.25 mg BID JONELLE Administration Zolpidem Tartrate 5 mg 03/03/20 17:30 Ambien PO QHS PRN Sleep Nutrition/Malnutrition Assess - Dietary Evaluation Nutrition/Malnutrition Findings: Nutrition Notes Start: 03/04/20 08:49 Freq: Status: Active Protocol: Document 03/04/20 08:49 RASHEED (Rec: 03/04/20 09:03 RASHEED [id number]) Co-Sign 03/04/20 08:49 LP Nutrition Notes Need for Assessment generated from: mold sheet cleaner Initial or Follow up Brief Note Other Pertinent Diagnosis Rhabdomyolysis, dehydration Current Diet Regular diet Labs/Tests BUN 24 Creatinine Kinase 53707 Pertinent Medications Lasix KCl Replacement Height 6 ft 3 in Weight 128.3 kg Usual Body Weight 106.4 kg [place] Body Weight (kg) 89.09 BMI 35.3 Intake Prior to Admission Good Weight Status Obese Subjective/Other Information Consult for malnutrition. Pt shows no signs of malnutrition . Pt has no difficulty eating and consuming 100% of meals. Pt reports no recent wt loss. Burn Absent Trauma Absent Food Allergy No Current % PO Good (75-100%) Minimum of two criteria No physical signs of malnutrition Is patient on ventilator? No Is Patient Ambulatory and/or Out of Bed Yes REE-([facility]-ambulatory/OOB) [ 2988.219 [id number]] Nutrition Intervention Goal #1 Pt continue meeting at least 80% of kcal and protein needs. Anticipated Discharge Needs: Regular diet Revisit per MD consult or patient Sign Off request:
--- NOTE | 2020-03-09 07:14 | Discharge Summary ---
Providers - Providers Date of Admission: 03/04/20 08:05 Date of discharge: 03/09/20 Attending physician: ADRY AUGUST 03/04/20 03:58 Consult to Wound/ET Nurse [CONS] Routine Reason For Exam: wound eval 03/04/20 07:48 Physical Therapy Evaluation and Treat [CONS] Routine Comment: Reason For Exam: Generalized extremity weakness/rhabdomyolysis 03/04/20 07:50 Occupational Therapy Evaluate and Treat [CONS] Routine Comment: Reason For Exam: Generalized weakness/rhabdomyolysis 03/07/20 08:08 psychiatry consult [Consult to Mental Health] [CONS] Routine Reason For Exam: History of schizophrenia, anxiety disorder, Primary care physician: GONZÁLEZ LUCAS Hospitalization Condition: Fair Disposition: DC-01 TO HOME OR SELFCARE Time spent for discharge: 34 MIN Core Measure Documentation - Palliative Care Palliative Care/ Comfort Measures: Not Applicable - Core Measures Any of the following diagnoses?: none Exam - Constitutional Vitals: Temp Pulse Resp BP Pulse Ox 98.3 F 79 20 109/61 93 03/09/20 04:32 03/09/20 04:32 03/09/20 04:32 03/09/20 04:32 03/09/20 04:32 General appearance: Present: no acute distress, well-nourished - EENT Eyes: Present: PERRL, EOM intact - Neck Neck: Present: supple, normal ROM - Respiratory Respiratory effort: normal Respiratory: bilateral: diminished, negative: rales, rhonchi, wheezing - Cardiovascular Rhythm: regular Heart Sounds: Present: S1 & S2 - Extremities Extremities: no ischemia, No edema - Abdominal General gastrointestinal: Present: soft, non-tender, non-distended, normal bowel sounds - Integumentary Integumentary: Present: clear, warm - Musculoskeletal Musculoskeletal: strength equal bilaterally - Psychiatric Psychiatric: appropriate mood/affect - Neurologic Neurologic: moves all extremities Plan Activity: advance as tolerated, fall precautions Diet: regular Additional Instructions: If your symptoms become worse contact MD or go to emergency room. Strongly advised to see private psychiatrist in 2 to 3 days. Advised to drink plenty of oral fluids and check CK levels in 2 to 3 days. Advised smoking cessation. Advised to quit recreational drug use. I spoke with patient's mother and updated patient's condition and discussed discharge planning. Follow up with: GONZÁLEZ LUCAS [Other] - 3-5 Days Forms: Discharge Signature Page Prescriptions: clonazePAM [ Klonopin] 0.5 mg PO TID PRN #90 tab PRN Reason: Anxiety clonazePAM [Klonopin] 1 mg PO TID #90 tablet risperiDONE [RisperDAL] 0.25 mg PO BID #60 tab
[2020-03-09] MEDS: clonazePAM 0.5 MG TAB PO SCH (09:45)
[2020-03-09] MEDS: risperiDONE 0.25 MG TAB PO SCH (09:45)
[2020-03-09] MEDS: POTASSIUM CHLORIDE ER 20 MEQ TAB PO SCH (09:45)
[2020-03-09] MEDS: FUROSEMIDE 20 MG/2 ML INJ IV SCH (09:45)
[2020-03-09 11:31] VITALS: BP 135/102
== END 2020-03-09 11:36 | disposition home or self-care (01) | DRG 558 ==
LOC: ED 08:05 → 3A 11:38 → 4A 14:26 → OBSVTOIN 03-04 08:05
PROVIDERS: ADMIT Internal Medicine; ATTEND Internal Medicine
DX: M62.82 Rhabdomyolysis (principal); E86.0 Dehydration; E87.6 Hypokalemia; E66.9 Obesity, unspecified; Z68.35 Body mass index [BMI] 35.0-35.9, adult; F17.200 Nicotine dependence, unspecified, uncomplicated; F41.9 Anxiety disorder, unspecified; D72.829 Elevated white blood cell count, unspecified; Z59.0 Homelessness; F20.9 Schizophrenia, unspecified; F15.19 Other stimulant abuse with unspecified stimulant-induced disorder; Z90.49 Acquired absence of other specified parts of digestive tract; Z88.5 Allergy status to narcotic agent; Z88.8 Allergy status to other drugs, medicaments and biological substances
CPT/HCPCS: 36415; 70450; 80048; 80307; 80320; 81001; 82140; 82550; 82962; 84484; 85007; 85025; 85027; 87040; 93005; 99406; G0378; C9113; G0480; J1940; J7030